=== PATIENT | female | born 1940 | race Caucasian/White ===

== ENCOUNTER 2021-01-15 11:41 | Inpatient (IN) | payer MEDICARE, SELFPAY ==
--- NOTE | 2021-01-15 11:43 | ECG_ITS ---
[facility] Test Date: 2021-01-15 Pat Name: Xena Thompson Department: Room: Gender: Female Bid Manager: : 1940 Requested By: Thomas Campbell Order Number: [id number] Linda MD: Sammy Blancas M.D. Measurements Intervals [place] Rate: 87 P: 62 ND: 154 QRS: 22 QRSD: 77 T: 25 QT: 361 QTc: 434 Interpretive Statements SINUS RHYTHM WITH OCCASIONAL SUPRAVENTRICULAR PREMATURE COMPLEXES INTERPRETATION BASED ON A DEFAULT AGE OF 40 YEARS No previous ECG available for comparison Electronically Signed On 01-15-2021 23:56:18 CDT by Sammy Blancas M.D. [email or web address] at stone [email or web address] [email or web address] health system [id number] f
[2021-01-15 11:44] VITALS: BP 115/61; PULSE 95; RESP 18; TEMP 36.8; O2SAT 96; BMI 15.4
--- NOTE | 2021-01-15 11:51 | CT_ITS ---
WS: [id number] CT CHEST, ABDOMEN AND PELVIS WITH CONTRAST. HISTORY: abd pain, dyspnea TECHNIQUE: Contiguous 5 mm axial imaging performed through the chest, abdomen and pelvis with IV cont rast, oral contrast has not been provided. Coronal and sagittal reformats chest. Coronal and sagittal reformats through the abdomen and pelvis. All CT scans at [facility] use at least one of the se dose optimization techniques: automated exposure control; mA and/or kV adjustment per patient size (includes targeted exams where dose is matched to clinical indication); or iterative reconstruction. CONTRAST: Omnipaque 300; 75 mL IV. DLP: 856.38 mGy.cm COMPARISON: 11/25/[address]: Lung volumes are decreased. Dependent changes at the lung bases. No effusion or pneumonia. Dilated pulmonary artery and aorta. Cardiac chambers are enlarged. No pericardial effusion. No adenop athy is identified within the thorax. Stomach is nearly completely intrathoracic. Abdomen CT: Small low-attenuation lesions throughout the liver. No bile duct dilatation. Gallbladder contains stones. No adjacent inflammation. Normal spleen. Pancreas is not well visualized due to alisha thing motion artifact. Neither adrenal gland is well visualized. Kidneys are atrophic bilaterally. Co mplex lobulated cyst upper pole LEFT kidney measures 3.5 x 4.6 cm and is increased in size since 2009. No hydronephrosis. Moderate atherosclerosis aorta. Poorly visualized GI tract. There is significant motion artifact. Cannot exclude acute abdominal or p elvic abnormalities. Pelvic CT: Severe fecal retention and constipation at the rectum. Diameter measuring 7.4 cm. Rogers ca theter is in place. LEFT total hip arthroplasty. Severe thoracolumbar scoliosis. Vertebral planar compression fracture at T12 with retropulsion towards the thecal sac. There are additional numerous, age indeterminate fract ures throughout the thoracic and lumbar spines. CT/CT chest abd pel w con* IMPRESSION: 1. Quality of this examination is significantly limited by breathing motion ar tifact and positioning of the patient. 2. Large hiatal hernia. 3. No pneumonia. 4. Cardiomegaly. 5. Complex cyst upper pole LEFT kidney has slightly increased in size since 10. 6. Severe constipation with fecal impaction at the rectum. Rectum measures 7.4 cm diameter. 7. Osteoporosis with numerous thoracic and lumbar spine compression fractures. Retropulsion of the T12 compression fracture with only mild encroachment into the thecal sac. 8. Cholelithiasis.
--- NOTE | 2021-01-15 11:51 | CT_ITS ---
WS: [id number] CT HEAD NONCONTRAST HISTORY: altered mental status, TECHNIQUE: Contiguous axial imaging performed through the brain in 2.5 mm imaging. Bone and soft tiss ue windows. Sagittal and coronal reformats reviewed. All CT scans at [facility] use at least one of these dose optimization techniques: automated exposure control; mA and/or kV adjustment per pa tient size (includes targeted exams where dose is matched to clinical indication); or iterative recon struction. DLP: 818.7 mGy.cm COMPARISON: None available. No acute intracranial hemorrhage, midline shift or mass effect. Moderate diffuse atrophy with low attenuation confluently throughout the white matter surrounding the ventricles. Ventricles: Marked dilatation of the lateral ventricle and third ventricle. Fourth ventricle is not significantly dilated. No obstructing mass identified. Paranasal sinuses: As visualized are clear. Mastoid air cells: Well pneumatized. Calvarium and scalp: Skull is intact with no soft tissue edema or swelling. CT/CT head wo con* [id number] IMPRESSION: 1. No acute intracranial hemorrhage or edema. 2. Marked dilatation of the lateral ventricles and third ventricle with a norm al size fourth ventricle. 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 No prior studies are available.
[2021-01-15 12:27] LABS: ABG PCO2 36.6 mmHg (35-45); ABG PH Result 7.44 (7.35-7.45); Alveolar-Arterial Oxygen Gradi 4.1 mmHg (5-10); Arterial Blood Gas Hematocrit 39.9 % (37-47); Base Excess ABG 0.6 mmol/L (-2.0-2.0); Blood Gas Allen Test Pos; Blood Gas Operator Identificat AMH; Blood Gas Sample Site Radial, right; Blood Gas Sample Type Arterial; Carboxyhemoglobin 1.3 %THgb (0.4-20.1); HCO3 ABG 24.6 mmol/L (22-26); HGB O2 Sat 93.1 % (95-100); Ionized Calcium Level - ABG 1.3 mmol/L (1.1-1.4); Methemoglobin 1.1 % (0.4-1.5); Oxygen Device ROOM AIR; Oxygen Saturation ABG 95.4; Potassium Level - ABG 3.5 mmol/L (3.5-5.0)
[2021-01-15 12:37] VITALS: BP 95/53; PULSE 86; PULSE 92; RESP 19; TEMP 37.1; O2SAT 95
[2021-01-15 12:43] LABS: Basophils % 0.3 %; Hematocrit 40.8 % (37.0-47.0); Hemoglobin 12.8 g/dL (11.5-15.3); Lymphocytes # 0.3 10^3/uL (0.8-4.8); Lymphocytes % 2.9 %; Mean Corpuscular HGB Conc 31.4 g/dL (30.0-36.0); Mean Corpuscular Hemoglobin 29.3 pg (28.0-34.0); Mean Corpuscular Volume 93.4 fl (81-99); Mean Platelet Volume 10.1 fL (7.4-10.4); Monocytes # 0.8 10^3/uL (0.2-0.9); Neutrophils # 9.45 10^3/uL (1.8-7.7); Neutrophils % 88.8 %; Nucleated Red Blood Cells % 0 %; Platelet Count 183 10^3/cmm (130-400); Red Blood Count 4.37 10^6/uL (4.1-5.3); Red Cell Distribution Width 13.1 % (12.1-15.1); White Blood Count 10.7 10^3/uL (4.0-10.0)
[2021-01-15] MEDS: sodium chloride 0.9% 500 ML 999 ML IV (12:49)
[2021-01-15 13:02] LABS: Alanine Aminotransferase 10 U/L (0-33); Albumin Level 4.3 g/dL (3.5-5.2); Alkaline Phosphatase 42 IU/L (35-105); Anion Gap 14.7 (5-19); Aspartate Amino Transferase 20 U/L (0-32); Blood Urea Nitrogen 31 mg/dL (8-23); Calcium 9.3 mg/dL (8.5-10.5); Carbon Dioxide 25 mmol/L (22-29); Chloride 111 mmol/L (98-107); Globulin 2.2 g/dL (1.3-4.6); Glucose 135 mg/dL (65-115); Lactic Sepsis W/Reflex 2.5 mmol/L (0.5-2.2); Lipase 38 U/L (13-60); Magnesium 2.3 mg/dL (1.7-2.3); Osmolality Calculated 313 mOsm/kg (285-295); Potassium 3.7 mmol/L (3.5-5.1); Sodium 147 mmol/L (136-145); Total Bilirubin 1.1 mg/dL (0.15-1.2); Total Protein 6.5 g/dL (6.6-8.7)
[2021-01-15 13:03] LABS: Troponin(5th) Baseline 41 ng/L (0-10)
--- NOTE | 2021-01-15 13:07 | W.ED.FALL ---
HPI - Fall General: Chief Complaint: Fall Stated Complaint: FOUND IN FLOOR, FALL, CONFUSED Time Seen by Provider: 01/15/21 11:43 History of Present Illness: HPI Narrative: 80-year-old female brought in by EMS. Per EMS report her living conditions were atrocious. Significant amount of stool bugs etc. and home. She did not appear to have the ability to get herself to the restroom or feed herself. She is cachectic poorly responsive. She was found down have been down for an unknown length of time.Patient is confused and disoriented we were able to get out of her there are some cousins in the area but she does not have anybody who looks in on her or help her. Length of time down is uncertain however it likely was extended MD complaint: fall Onset (ago): unknown Fall witnessed: no Place fall occurred: home Prolonged down time: yes Associated symptoms-after fall: Reports confusion, difficulty walking and weakness; Denies abdominal pain, chest pain, headache(s), hematuria, lightheadedness, neck pain, numbness, short of breath or vertigo Review of Systems Const: Denies: fever(s), chills, body aches, change in appetite, fatigue or malaise ENMT: Denies: throat pain, ear or mastoid pain, nasal discharge or nasal congestion Card: Denies: chest pain or lightheadedness Resp: Denies: dyspnea, productive cough or non-productive cough GI: Denies: abdominal pain : Denies: hematuria Musc: Denies: neck pain Skin/Breast: Denies: rash or pruritus Neuro: Reports: difficulty walking and confusion; Denies: headache(s) or vertigo PFS ED PFSH: Medical History (Updated 01/16/21 @ 14:48 by Thomas Sanchez DO) HTN (hypertension) Kyphoscoliosis Osteoarthritis Urinary incontinence Surgical History (Updated 01/15/21 @ 17:40 by Ramon Watkins MD) History of hip surgery Tells me she broke her hip does not remember when Hx of hernia repair Tells me about middle abdominal hernia repair, does not remember when Family History (Updated 01/15/21 @ 17:52 by Ramon Watkins MD) Other Cancer Social History Smoking and tobacco status: never smoked Alcohol intake: never Substance/Drug Use: never Caregiver/support person: No (Gets help from friend as per HPI) Lives independently: Yes Physical Exam Const: COMMON NORMALS: no acute distress GENERAL APPEARANCE: cooperative HENMT: COMMON NORMALS: normocephalic and atraumatic HEAD & SCALP: normocephalic and atraumatic Neck/C-Spine: COMMON NORMALS: no JVD Resp: COMMON NORMALS: normal respiratory effort, No retractions, No use of accessory muscles and clear to auscultation bilaterally AUSCULTATION: clear to auscultation bilaterally Cardio: COMMON NORMALS: no JVD, regular rate, regular rhythm and No murmurs present (Cardio) RATE: regular rate RHYTHM: regular rhythm GI: COMMON NORMALS: Soft to palpation and No hepatosplenomegaly present AUSCULTATION: Yes normoactive bowel sounds PALPATION: Yes Soft to palpation, No Tenderness to palpation present (GI), No Guarding due to palpation present (GI) and Yes No hepatosplenomegaly present Extremity: COMMON NORMALS: normal to inspection, capillary refill normal, no clubbing, cyanosis or edema, no calf tenderness and no pedal edema Skin: OTHER: Skin tear on the left posterior thigh multiple skin ulcerations no loss presacral ulcerations or decubiti. Chronic venous stasis changes and swelling of the lower extremities. Course Vital Signs: Vital signs: Vital Signs Temperature 99.4 F 01/16/21 11:48 Pulse Rate 84 01/16/21 11:48 Respiratory Rate 18 01/16/21 11:48 Blood Pressure 131/80 01/16/21 11:48 Pulse Oximetry 96 01/16/21 11:48 MDM - Fall MDM Narrative: Medical decision making narrative: Patient emaciated unable to care for self.She does have cystitis and mild rhabdomyolysis. There is also a question of intracranial hypertension however whether or not this is acute or chronic cannot be determined at this point. In either event the patient will need to be stabilized before any intervention to be done she will need further neurologic consultation discussed Dr. Watkins orders are written. Lab Data: Labs: Lab Results 01/15/21 01/15/21 01/15/21 12:15 12:21 12:25 WBC 10.7 10^3/uL H 10 ^3/uL (4.0-10.0) RBC 4.37 10^6/uL 10^6 /uL (4.1-5.3) Hgb 12.8 g/dL g/dL (11.5-15.3) Hct 40.8 % % (37.0-47.0) MCV 93.4 fl fl (81-99) MCH 29.3 pg pg (28.0-34.0) MCHC 31.4 g/dL g/dL (30.0-36.0) RDW 13.1 % % (12.1-15.1) Plt Count 183 10^3/cmm 10^3 /cmm (130-400) MPV 10.1 fL fL (7.4-10.4) Neut % (Auto) 88.8 % % Lymph % (Auto) 2.9 % % [place] % (Auto) 7.0 % % Eos % (Auto) 0.0 % % Baso % (Auto) 0.3 % % Neut # (Auto) 9.45 10^3/uL H 10 ^3/uL (1.8-7.7) Lymph # (Auto) 0.3 10^3/uL L 10^ 3/uL (0.8-4.8) [place] # (Auto) 0.8 10^3/uL 10^3/ uL (0.2-0.9) Eos # (Auto) 0.0 10^3/uL 10^3/ uL (0.0-0.8) Baso # (Auto) 0.0 10^3/uL 10^3/ uL (0.0-0.1) Nucleated RBC % (a uto) 0 % % Nucleated RBCs # 0.0 /100WBC /100W BC Specimen Type Arterial Sample Site Radial, right ABG pH 7.44 (7.35-7.45) ABG pCO2 36.6 mmHg mmHg (35-45) ABG pO2 69.0 mmHg L mmHg (80.0-100.0) ABG HCO3 24.6 mmol/L mmol/ L (22-26) ABG O2 Saturation 95.4 ABG Base Excess 0.6 mmol/L mmol/L (-2.0-2.0) Efraín Test Pos A-a O2 Gradient 4.1 mmHg L mmHg (5-10) Hematocrit 39.9 % % (37-47) Hgb O2 Saturation 93.1 % L % (95-100) Carboxyhemoglobin 1.3 %THgb %THgb (0.4-20.1) Methemoglobin 1.1 % % (0.4-1.5) Total Hemoglobin 13.0 g/dL g/dL (12-16) Sodium 151.0 mmol/L H mm ol/L (131-143) Potassium 3.5 mmol/L mmol/L (3.5-5.0) Glucose 139.0 mg/dL H mg/ dL (70-115) Ionized Calcium 1.3 mmol/L mmol/L (1.1-1.4) O2 Delivery Device Room air FiO2 21.0 % % Spray Gun Sizer ID Amh Chloride Carbon Dioxide Anion Gap BUN Creatinine GFR Calculation Calculated Osmolal ity Lactic Acid Lactic Acid (Sepsi s) Calcium Magnesium Total Bilirubin AST ALT Alkaline Phosphata se Creatine Kinase Troponin T Baselin e Troponin T 120 Min [place] Troponin T Total Protein Albumin Globulin Lipase Urine Color Yellow (Yellow) Urine Appearance Cloudy (CLEAR) Urine pH 5 (5-7) Ur Specific Gravit y 1.020 (1.005-1.030) Urine Protein 1+ H (Negative) Urine Glucose (UA) Norm (Normal) Urine Ketones Negative (Negative) Urine Blood 3+ H (Negative) Urine Nitrate Negative (Negative) Urine Bilirubin 1+ H (Negative) Urine Urobilinogen 1 mg/dL H mg/dL (Negative) Ur Leukocyte [place] 2+ H (Negative) Urine RBC >100 /hpf H /hpf (0-2) Urine WBC Too numerous to c nt /hpf H /hpf (0-5) Ur Squamous Epith Cells 5-10 /hpf H /hpf (0-5) Amorphous Sediment Not Reportable Urine Bacteria 4+ /hpf H /hpf (NONE) Serum Ketones 01/15/21 01/15/21 01/15/21 12:25 12:25 12:25 WBC RBC Hgb Hct MCV MCH MCHC RDW Plt Count MPV Neut % (Auto) Lymph % (Auto) [place] % (Auto) Eos % (Auto) Baso % (Auto) Neut # (Auto) Lymph # (Auto) [place] # (Auto) Eos # (Auto) Baso # (Auto) Nucleated RBC % (a uto) Nucleated RBCs # Specimen Type Sample Site ABG pH ABG pCO2 ABG pO2 ABG HCO3 ABG O2 Saturation ABG Base Excess Efraín Test A-a O2 Gradient Hematocrit Hgb O2 Saturation Carboxyhemoglobin Methemoglobin Total Hemoglobin Sodium 147 mmol/L H mmol /L (136-145) Potassium 3.7 mmol/L mmol/L (3.5-5.1) Glucose 135 mg/dL H mg/dL (65-115) Ionized Calcium O2 Delivery Device FiO2 Spray Gun Sizer ID Chloride 111 mmol/L H mmol /L (98-107) Carbon Dioxide 25 mmol/L mmol/L (22-29) Anion Gap 14.7 (5-19) BUN 31 mg/dL H mg/dL (8-23) Creatinine 0.9 mg/dL mg/dL (0.5-0.9) GFR Calculation Not Reportable Calculated Osmolal ity 313 mOsm/kg H mOs m/kg (285-295) Lactic Acid 2.5 mmol/L H mmol /L (0.5-2.2) Lactic Acid (Sepsi s) Calcium 9.3 mg/dL mg/dL (8.5-10.5) Magnesium 2.3 mg/dL mg/dL (1.7-2.3) Total Bilirubin 1.1 mg/dL mg/dL (0.15-1.2) AST 20 U/L U/L (0-32) ALT 10 U/L U/L (0-33) Alkaline Phosphata se 42 IU/L IU/L (35-105) Creatine Kinase 548 U/L H* U/L (26-192) Troponin T Baselin e 41 ng/L H ng/L (0-10) Troponin T 120 Min [place] Troponin T Total Protein 6.5 g/dL L g/dL (6.6-8.7) Albumin 4.3 g/dL g/dL (3.5-5.2) Globulin 2.2 g/dL g/dL (1.3-4.6) Lipase 38 U/L U/L (13-60) Urine Color Urine Appearance Urine pH Ur Specific Gravit y Urine Protein Urine Glucose (UA) Urine Ketones Urine Blood Urine Nitrate Urine Bilirubin Urine Urobilinogen Ur Leukocyte [place] Urine RBC Urine WBC Ur Squamous Epith Cells Amorphous Sediment Urine Bacteria Serum Ketones 01/15/21 01/15/21 01/15/21 12:25 14:35 14:35 WBC RBC Hgb Hct MCV MCH MCHC RDW Plt Count MPV Neut % (Auto) Lymph % (Auto) [place] % (Auto) Eos % (Auto) Baso % (Auto) Neut # (Auto) Lymph # (Auto) [place] # (Auto) Eos # (Auto) Baso # (Auto) Nucleated RBC % (a uto) Nucleated RBCs # Specimen Type Sample Site ABG pH ABG pCO2 ABG pO2 ABG HCO3 ABG O2 Saturation ABG Base Excess Efraín Test A-a O2 Gradient Hematocrit Hgb O2 Saturation Carboxyhemoglobin Methemoglobin Total Hemoglobin Sodium Potassium Glucose Ionized Calcium O2 Delivery Device FiO2 Spray Gun Sizer ID Chloride Carbon Dioxide Anion Gap BUN Creatinine GFR Calculation Calculated Osmolal ity Lactic Acid Lactic Acid (Sepsi s) 1.6 mmol/L mmol/L (0.5-2.2) Calcium Magnesium Total Bilirubin AST ALT Alkaline Phosphata se Creatine Kinase Troponin T Baselin e Troponin T 120 Min [place] 31.62 ng/L H ng/L (0-10) [place] Troponin T -9.38 ABS# L ABS# (0-10) Total Protein Albumin Globulin Lipase Urine Color Urine Appearance Urine pH Ur Specific Gravit y Urine Protein Urine Glucose (UA) Urine Ketones Urine Blood Urine Nitrate Urine Bilirubin Urine Urobilinogen Ur Leukocyte [place] Urine RBC Urine WBC Ur Squamous Epith Cells Amorphous Sediment Urine Bacteria Serum Ketones Negative (Negative) Discharge Plan Discharge Patient Disposition: Admitted As Inpatient Admit Provider: Ramon Watkins Clinical Impression: UTI (urinary tract infection), Dehydration, Dementia, Declining functional status, Rhabdomyolysis, Obstructive hydrocephalus, Unable to walk Condition: Stable Coding Level of Care Code ED Munitions Handler for Chg Fwd Exam Detailed
[2021-01-15 13:09] LABS: Ketone (Acetest) Serum Negative (Negative)
[2021-01-15 13:14] LABS: Creatine Phosphokinase 548 U/L (26-192)
--- NOTE | 2021-01-15 13:29 | XR_ITS ---
WS: [id number] Exam: XR chest 1V portable [id number] Date/Time of Exam: 01/15/2021 1:32 PM Reason For Exam: dyspnea/cough Comparison 06/14/2013. The lungs are fully expanded and clear. Chronic eventration right diaphragm. Angular scoliosis of the lumbar spine. Several old rib fractures on the right. Cardiomediastinal structures are unremarkable in appearance. No pleural effusions. XR/XR chest 1V portable [id number] IMPRESSION: 1. No acute cardiopulmonary finding.
--- NOTE | 2021-01-15 13:51 | PC.NURSE ---
Pt arrived via EMS from home, where she lives alone. Pt states she has a neighbor friend that checks in on her once in a while but does not have any family in the area. Pt states she never had children. EMS states pts neighbor stopped in to check on her and found her lying on the floor of her home and called 911. EMS states pt was surrounded by garbage, various bugs, spirders and cockroaches were noted to be crawling around and on pt. Pt was lying in a stool filled brief with a plastic bag stuck inside the brief. EMS reports when they removed her pants on scene cockroaches were noted to come out of pts pants and groin area. Pt appears to be quite thin, bordering on emaciated and is extremely dirty. Pt is wearing a dirty long sleeved shirt, pantyhose over her legs covering a large diaper on pts left knee and a large diaper wrap covering pts right lower extremity. Pt reports she has been on the floor for an unknown amount of time but thinks maybe 2-3 days . This RN asked pt when the last time she has bathed, pt responded I dont know when . This RN asked pt when the last time she has eaten or had anything to drink, pt reports I cant remember . EMS states there were cats (unknown amount of cats) in the home and the home was filthy, appearing to be uninhabitable. Pt A/O x4, vs taken, pts solied clothing removed from pt, pt was cleaned and skin washed with soap and water, pt dired and a clean gown placed on pt with barrier cream administered to pts conchis and buttocks area. Pt given warm blankets, and is requesting something to drink. Per Dr. Sanchez, pt ok to drink. Pt assisted with drinking a small glass of water. EMS advosed this RN they will be calling and filing a report with [facility]. This RN will hotline pt
[2021-01-15] MEDS: iohexol 300 mg/mL 100 mL Btl IV (13:57)
[2021-01-15 14:27] LABS: Reflex Lactate Order REFLEX LACTIC ORDERD
[2021-01-15 14:38] LABS: Urine Appearance Cloudy (CLEAR); Urine Color Yellow (Yellow); pH Urine 5 (5-7)
[2021-01-15 14:39] LABS: Add Urine Microscopic? YES; Bilirubin Urine 1+ (Negative); Blood Urine 3+ (Negative); Glucose Urine UA Norm (Normal); Ketones Urine Negative (Negative); Leukocyte Esterase Urine 2+ (Negative); Nitrate Urine Negative (Negative); Protein Urine 1+ (Negative); Urobilinogen Urine 1 mg/dL (Negative)
[2021-01-15 14:45] LABS: Add Urine Culture? Yes; Bacteria Urine 4+ /hpf; RBC Urine >100 /hpf (0-2); WBC Urine TOO NUMEROUS TO CNT /hpf (0-5)
[2021-01-15] MEDS: cefTRIAXone 1,000 MG in sodium chloride 0.9% (plus) 50 ML 100 MG IV (15:01)
[2021-01-15 15:28] LABS: Lactic Acid level (Lactate) 1.6 mmol/L (0.5-2.2)
[2021-01-15 15:45] LABS: Troponin 5 2HR 31.62 ng/L (0-10)
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
--- NOTE | 2021-01-15 17:43 | ECG_ITS ---
[facility] Test Date: 2021-01-15 Pat Name: Xena Thompson Department: Room: Gender: Female Section Leader And Machine Setter: : 1940 Requested By: Thomas Campbell Order Number: [id number] Linda MD: Sammy Blancas M.D. Measurements Intervals Elfrida Rate: 78 P: 40 IA: 147 QRS: -1 QRSD: 74 T: 31 QT: 371 QTc: 424 Interpretive Statements SINUS RHYTHM INTERPRETATION BASED ON A DEFAULT AGE OF 40 YEARS Compared to ECG 01/15/2021 13:09:38 No significant changes Heavy baseline artifact, need to repeat the Electronically Signed On 01-16-2021 0:01:12 CDT by Sammy Blancas M.D. [email or web address] ([email or web address]) montgomery va medical centerInotremkettering health behavioral medical center.BzzAgent/store/NU/[id number] f
[2021-01-15 18:17] VITALS: BP 123/66; PULSE 75; RESP 15; O2SAT 95
--- NOTE | 2021-01-15 19:04 | NUR.SHIFT ---
P\This Rn called[place] Hotline regarding pts living conditions. Report given evelio Friedman
[2021-01-15 19:25] LABS: Troponin 5 6HR 35.19 ng/L (0-10)
[2021-01-15 19:26] LABS: Troponin 5 6HR Delta -5.81 ng/L (0-12)
[2021-01-15 20:17] VITALS: BP 123/74; PULSE 72; RESP 17; TEMP 36.6; O2SAT 93
[2021-01-15] MEDS: heparin 5,000 unit/mL INJ 1 mL 5000 UNIT SUBCUT (22:14)
[2021-01-16] VITALS: BP 138/74; PULSE 82; RESP 21; TEMP 36.6; O2SAT 96
[2021-01-16 04:00] VITALS: BP 111/65; PULSE 79; RESP 18; TEMP 36.9; O2SAT 96
--- NOTE | 2021-01-16 06:00 | USCV_ITS ---
Thompson, Jowilver Age: 80 Gender: F : 1940 Exam Date: 01/16/2021 06:25 Ordering Phys: Ramon Watkins MD Technologist: Beckie Ramirez [place] [facility] [place]: [place]WELLING HISTORY: Lower extremity swelling. PROCEDURES: Venous duplex imaging was performed in bilateral lower extremities. The following venous structures were evaluated: common femoral vein, profunda vein, proximal portion of the greater saphenous vein, superficial femoral vein, and the popliteal vein. In addition, the posterior tibial and peroneal trunk were evaluated. FINDINGS: Normal 2-D Doppler and augmentation and compressibility throughout the lower extremity venous structures. Additional imaging through the proximal calf veins also reveals no thrombus. Limited evaluation of the greater saphenous vein is patent with no thrombus. CONCLUSIONS No DVT bilateral lower extremities. Dr. Siria Ritter DO (Electronically Signed) Final Date: 16 January 2021 08:39 S
[2021-01-16 06:17] LABS: Basophils % 0.2 %; Hematocrit 38.4 % (37.0-47.0); Hemoglobin 11.8 g/dL (11.5-15.3); Lymphocytes # 0.8 10^3/uL (0.8-4.8); Lymphocytes % 6.5 %; Mean Corpuscular HGB Conc 30.7 g/dL (30.0-36.0); Mean Corpuscular Hemoglobin 29.6 pg (28.0-34.0); Mean Corpuscular Volume 96.2 fl (81-99); Mean Platelet Volume 10.2 fL (7.4-10.4); Monocytes # 1.4 10^3/uL (0.2-0.9); Monocytes % 11.7 %; Neutrophils # 9.78 10^3/uL (1.8-7.7); Neutrophils % 81.1 %; Nucleated Red Blood Cells % 0 %; Platelet Count 149 10^3/cmm (130-400); Red Blood Count 3.99 10^6/uL (4.1-5.3); Red Cell Distribution Width 13.1 % (12.1-15.1); White Blood Count 12.1 10^3/uL (4.0-10.0)
[2021-01-16 06:41] LABS: Alanine Aminotransferase 15 U/L (0-33); Albumin Level 3.5 g/dL (3.5-5.2); Alkaline Phosphatase 34 IU/L (35-105); Anion Gap 14.9 (5-19); Aspartate Amino Transferase 31 U/L (0-32); Blood Urea Nitrogen 28 mg/dL (8-23); Calcium 8.9 mg/dL (8.5-10.5); Carbon Dioxide 22 mmol/L (22-29); Chloride 110 mmol/L (98-107); Globulin 1.7 g/dL (1.3-4.6); Glucose 115 mg/dL (65-115); Osmolality Calculated 302 mOsm/kg (285-295); Potassium 3.9 mmol/L (3.5-5.1); Sodium 143 mmol/L (136-145); Thyroid Stimulating Hormone 3.14 uIU/mL (0.27-4.20); Total Bilirubin 0.6 mg/dL (0.15-1.2); Total Protein 5.2 g/dL (6.6-8.7)
--- NOTE | 2021-01-16 07:24 | PC.NURSE ---
Frequent safety and comfort rounds continue. Orders and/or nursing care completed as indicated. Patient monitored for response to intervention and treatment(s). Education provided includes medications]. Patient and/or sales representative womens health verbalizes understanding. Will continue to monitor.
[2021-01-16 07:51] VITALS: BP 123/75; PULSE 72; RESP 18; TEMP 36.3; O2SAT 97
[2021-01-16] MEDS: heparin 5,000 unit/mL INJ 1 mL 5000 UNIT SUBCUT ×2 (08:13→20:33)
[2021-01-16 09:15] LABS: Creatine Phosphokinase 739 U/L (26-192)
--- NOTE | 2021-01-16 10:17 | PC.CHAP ---
Pastoral Care Encounter/Spiritual Assessment Type of Contact [] Declined silver brazer visit [] Patient/Family/Request visit [] Outpatient visit [] Follow-up visit [] Physician referral [] Code/Alert [x] Routine visit [] Staff referral [] Actively dying [] Patient sleeping [] Family support [] [] Out of room [] Palliative care [] [] Receiving care in room [] Pre-surgical visit [] Trauma [] Long length of stay [] ICU visit [] Other: Relational/Emotional Strength [x] Patient feels connected with others/family/visitors/staff [] Distress [] Loneliness/isolation [] Abandonment Spirituality of Patient x[] Person of Vane [x] Attends Hoahaoism of their Vane [x] Believes in Prayer [x] Reads Bible or Pentecostalism materials [] There are Spiritual issues to be addressed Engineer Specialist Interventions [x] Prayer [x] Active listening [x] Non-anxious presence [] Spiritual/emotional support [] Crisis/trauma care [] Spiritual counseling [] Bereavement support [] Provided bereavement packet [] Provided Bible/devotional materials [] Provided toy/stuffed animal, coloring book to patient or family member [] Provided Communion [] Anointing/[place] [] Salvation [x] Completed spiritual assessment [] Other: Impact on Illness or Injury [] Angry [] Fearful [] Anxious [] Often cries [] Exhaustion [] Unable to work [] Unable to attend restorationism [] Unable to walk/stand [] Unable to read [] Unable to drive [] Unable to eat/drink [] Unable to sleep [] Unable to be with family [] Patient intubated [] Other: Summary Time spent with patient 10 min
[2021-01-16 11:48] VITALS: BP 131/80; PULSE 84; RESP 18; TEMP 37.4; O2SAT 96
[2021-01-16] MEDS: cefTRIAXone 1,000 MG in sodium chloride 0.9% (plus) 50 ML 100 MG IV (14:34)
--- NOTE | 2021-01-16 14:59 | PM.CONSULT ---
Documented by User: CASS Quezada 01/16/21 15:10 Providers/Reason For Consult Consulting Physician/Specialty*: Orthopedics Reason for Consult*: Back Pain Attending Physician: Ramon Watkins History of Present Illness History of Present Illness Xena Thompson is a 80 year old female presented to [facility] on 01/15/2021. She was found to have a fracture in her back. Patient denies recent injury although she was found on the floor. upon evaluation in room 254 she wasnt reporting much back pain. she reports aching in her back. Rest helps reduce the back ache. denies loss of Bowel or bladder. Review of Systems Const: Denies: fever(s), chills, body aches, change in appetite, fatigue or malaise Eyes: Denies: change in vision or eye redness ENMT: Denies: throat pain, oral sores, ear or mastoid pain, nasal discharge or nasal congestion Card: Denies: chest pain, edema, lightheadedness, pre-syncope or dyspnea on exertion Resp: Denies: dyspnea, productive cough, non-productive cough, change in phlegm color or hemoptysis GI: Denies: abdominal pain, nausea, vomiting, diarrhea, constipation, hematochezia or melena : Reports: urinary urgency, nocturia and urinary incontinence; Denies: flank pain, urinary frequency or hematuria Musc: Reports: muscle weakness; Denies: neck pain, back pain, joint swelling or joint redness Skin/Breast: Denies: rash, pruritus, sores or new lesions Neuro: Reports: weakness in extremities, difficulty walking, confusion and other (Memory problems); Denies: headache(s), numbness in extremities, dizziness, vertigo or seizure-like activity Endo: Denies: polyuria or polydipsia Zia/Lymph: Denies: easy bleeding or purpura All/Imm: Denies: urticaria, throat swelling or tongue swelling Meds/Allergies Home Medications and Allergies Home Medications Medication Instructions Recorded Confirmed Last Taken Type No Known Home Medications 01/15/21 01/15/21 Unknown History Allergies Allergy/AdvReac Type Severity Reaction Status Date / Time No Known Allergies Allergy Unverified 01/15/21 14:12 Current Medications Current Medications Generic Name Dose Route Start Last Admin Trade Name Freq PRN Reason Stop Dose Admin Heparin Sodium (Porcine) 5,000 unit 10/28/21 20:17 01/16/21 08:13 Heparin 5,000 Unit/Ml Inj 1 Ml SUBCUT 5,000 unit Q12H NURIS Administration PFSH Acute PFSH: Medical History (Updated 01/16/21 @ 15:08 by CASS Quezada) Fracture, thoracic vertebra, compression HTN (hypertension) Kyphoscoliosis Osteoarthritis Urinary incontinence Surgical History (Updated 01/15/21 @ 17:40 by Ramon Watkins MD) History of hip surgery Tells me she broke her hip does not remember when Hx of hernia repair Tells me about middle abdominal hernia repair, does not remember when Family History (Updated 01/15/21 @ 17:52 by Ramon Watkins MD) Other Cancer Social History Smoking and tobacco status: never smoked Alcohol intake: never Substance/Drug Use: never Caregiver/support person: No (Gets help from friend as per HPI) Lives independently: Yes Vitals/I&O/Wt Last Vital Signs Temp 99.4 F 01/16/21 11:48 Pulse 84 01/16/21 11:48 Resp 18 01/16/21 11:48 BP 131/80 01/16/21 11:48 Pulse Ox 96 01/16/21 11:48 01/15/21 01/16/21 01/16/21 22:59 06:59 14:59 Intake Total 240 / 240 Output Total 650 / 650 Balance -410 / -410 Weight last 48 hrs Weight 96 lb Weight 90 lb Physical Exam Const: COMMON NORMALS: no acute distress HENMT: COMMON NORMALS: normocephalic HEAD & SCALP: normocephalic Resp: COMMON NORMALS: normal respiratory effort Cardio: COMMON NORMALS: regular rate and regular rhythm RATE: regular rate RHYTHM: regular rhythm GI: COMMON NORMALS: non-tender : COMMON NORMALS: Yes no CVA tenderness BLADDER/KIDNEY EXAM: Yes no CVA tenderness Back/Pelvis: COMMON NORMALS: no CVA tenderness THORACIC SPINE/UPPER BACK: Yes normal to inspection, Yes pain with ROM and Yes thoracic spinal tenderness LUMBAR SPINE/LOWER BACK: Yes ROM limited, Yes pain with ROM and Yes lumbar spinal tenderness Psych: COMMON NORMALS: cooperative Urinary Catheter Management^: Rogers: Cath Placed During This Visit: yes Reason for Continuing Indwelling Catheter: Assist Healing of Perineal & Sacral Wounds- Incontinent Patients Urinary Catheter Date of Insertion: 01/15/21 Urinary Catheter Time of Insertion: 11:20 Data Micro: Micro: Microbiology 01/15/21 12:21 Urine Culture - Pr eliminary Urine Catheterize d Gram Negative R ods A&P Assessment and plan (1) Fracture, thoracic vertebra, compression: Will order an MRI of the Thoracic Spine with STIR images. Await results to determine if she will require bracing treatment. Status: Acute Coding Level of Care Code Acute Care Worker for [facility] Fwd Exam Comprehensive Diagnoses Fracture, thoracic vertebra, compression S22.000A Documented by User: Jozef Wilson DO 01/16/21 15:14 Meds/Allergies Home Medications and Allergies Home Medications Medication Instructions Recorded Confirmed Last Taken Type No Known Home Medications 01/15/21 01/15/21 Unknown History Allergies Allergy/AdvReac Type Severity Reaction Status Date / Time No Known Allergies Allergy Unverified 01/15/21 14:12 PFSH Acute PFSH: Medical History (Updated 01/16/21 @ 15:08 by CASS Quezada) Fracture, thoracic vertebra, compression HTN (hypertension) Kyphoscoliosis Osteoarthritis Urinary incontinence Surgical History (Updated 01/15/21 @ 17:40 by Ramon Watkins MD) History of hip surgery Tells me she broke her hip does not remember when Hx of hernia repair Tells me about middle abdominal hernia repair, does not remember when Family History (Updated 01/15/21 @ 17:52 by Ramon Watkins MD) Other Cancer Social History Smoking and tobacco status: never smoked Alcohol intake: never Substance/Drug Use: never Caregiver/support person: No (Gets help from friend as per HPI) Lives independently: Yes Physical Exam Urinary Catheter Management^: Rogers: Cath Placed During This Visit: no A&P Assessment and plan (1) Fracture, thoracic vertebra, compression: patient seen agree with above will await MRI read OK to get out of bed Status: Acute Consult Attestations Medical Necessity Statement: per primary service Coding Level of Care Code Acute Care Worker for [facility] Fwd Exam Comprehensive Diagnoses Fracture, thoracic vertebra, compression S22.000A
--- NOTE | 2021-01-16 15:01 | PM.CONSULT ---
Providers/Reason For Consult Attending Physician: Ramon Watkins History of Present Illness History of Present Illness Xena Thompson is a 80 year old female Review of Systems Const: Denies: fever(s), chills, body aches, change in appetite, fatigue or malaise Eyes: Denies: change in vision or eye redness ENMT: Denies: throat pain, oral sores, ear or mastoid pain, nasal discharge or nasal congestion Card: Denies: chest pain, edema, lightheadedness, pre-syncope or dyspnea on exertion Resp: Denies: dyspnea, productive cough, non-productive cough, change in phlegm color or hemoptysis GI: Denies: abdominal pain, nausea, vomiting, diarrhea, constipation, hematochezia or melena : Reports: urinary urgency, nocturia and urinary incontinence; Denies: flank pain, urinary frequency or hematuria Musc: Reports: muscle weakness; Denies: neck pain, back pain, joint swelling or joint redness Skin/Breast: Denies: rash, pruritus, sores or new lesions Neuro: Reports: weakness in extremities, difficulty walking, confusion and other (Memory problems); Denies: headache(s), numbness in extremities, dizziness, vertigo or seizure-like activity Endo: Denies: polyuria or polydipsia Zia/Lymph: Denies: easy bleeding or purpura All/Imm: Denies: urticaria, throat swelling or tongue swelling Meds/Allergies Home Medications and Allergies Home Medications Medication Instructions Recorded Confirmed Last Taken Type No Known Home Medications 01/15/21 01/15/21 Unknown History Allergies Allergy/AdvReac Type Severity Reaction Status Date / Time No Known Allergies Allergy Unverified 01/15/21 14:12 Current Medications Current Medications Generic Name Dose Route Start Last Admin Trade Name Freq PRN Reason Stop Dose Admin Heparin Sodium (Porcine) 5,000 unit 01/15/21 20:17 01/16/21 08:13 Heparin 5,000 Unit/Ml Inj 1 Ml SUBCUT 5,000 unit Q12H NURIS Administration PFSH Acute PFSH: Medical History (Updated 01/16/21 @ 14:48 by Thomas Sanchez DO) HTN (hypertension) Kyphoscoliosis Osteoarthritis Urinary incontinence Surgical History (Updated 01/15/21 @ 17:40 by Ramon Watkins MD) History of hip surgery Tells me she broke her hip does not remember when Hx of hernia repair Tells me about middle abdominal hernia repair, does not remember when Family History (Updated 01/15/21 @ 17:52 by Ramon Watkins MD) Other Cancer Social History Smoking and tobacco status: never smoked Alcohol intake: never Substance/Drug Use: never Caregiver/support person: No (Gets help from friend as per HPI) Lives independently: Yes Vitals/I&O/Wt Last Vital Signs Temp 99.4 F 01/16/21 11:48 Pulse 84 01/16/21 11:48 Resp 18 01/16/21 11:48 BP 131/80 01/16/21 11:48 Pulse Ox 96 01/16/21 11:48 01/16/21 01/16/21 01/16/21 06:59 14:59 22:59 Intake Total 240 / 240 Output Total 650 / 650 Balance -410 / -410 Weight last 48 hrs Weight 96 lb Weight 90 lb Physical Exam Urinary Catheter Management^: Rogers: Cath Placed During This Visit: yes Reason for Continuing Indwelling Catheter: Assist Healing of Perineal & Sacral Wounds- Incontinent Patients Urinary Catheter Date of Insertion: 01/15/21 Urinary Catheter Time of Insertion: 11:20 Data Micro: Micro: Microbiology 01/15/21 12:21 Urine Culture - Pr eliminary Urine Catheterize d Gram Negative R ods Coding Level of Care Code Acute Meal Miller for Dwayneg Katherine
[2021-01-16 15:40] VITALS: BP 125/78; PULSE 86; RESP 18; TEMP 36.8; O2SAT 95
[2021-01-16 20:00] VITALS: BP 120/76; PULSE 84; RESP 17; TEMP 36.7; O2SAT 93
--- NOTE | 2021-01-16 20:17 | MR_ITS ---
WS: [id number] MRI LUMBAR SPINE NONCONTRAST HISTORY: unable to walk, compression Fx T12, urinary incontinence COMPARISON: 11/26/2009 TECHNIQUE: Sagittal and axial multisequence imaging is submitted. Significant progression of degenerative rotoscoliosis and osteoporotic compression fracture since 11/26. Severe RIGHT rotoscoliosis of the lumbar spine. Disc spaces are all desiccated. Retrolisthesis of L4 by 7 mm. T10, T11 and T12 compression fractures. Severe vertebral planar fracture of T12. No marrow edema is e vident. Moderate LEFT foraminal stenosis at T11-12 due to the scoliosis and degenerative changes in t he thoracic spine. Severe compression fractures at L2, L3 and L4 are not acute. No marrow edema. Extensive bilateral fac et joint arthritis encroaching into the thecal sac at all levels. Conus terminates normally at L1-2 disc level. L1-L2: Diffuse asymmetric disc bulging to the LEFT. Severe LEFT foraminal stenosis and mild on the RI GHT. LEFT facet arthritis encroaches into the thecal sac. L2-L3: Severe facet joint arthritis with annular disc bulging contributing to moderate central and bi lateral foraminal stenosis. L3-L4: Severe central and bilateral foraminal stenosis. Thecal sac is being deformed by retropulsion of L4. L4-L5: Thecal sac is deformed and elongated. Moderate ligamentum flavum and facet arthritis. Severe b ilateral foraminal stenosis. L5-S1: Moderate bilateral foraminal stenosis. Lobulated cyst associated with the LEFT kidney. MR/MR lumbar spine wo con* [id number] IMPRESSION: 1. Quality of this MRI examination is significantly limited by patient's physi sami condition. 2. Numerous compression fractures in the lower thoracic and lumbar spine as de scribed above. None of these fractures appear acute. 3. Retropulsion of the L4 vertebral body causing a severe central and foramina l stenosis at L3-4. 4. Severe LEFT foraminal stenosis at L1-2. 5. Moderate central and bilateral foraminal stenosis at L2-3. 6. Severe bilateral foraminal stenosis at L4-5 and moderate at L5-S1.
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
[2021-01-17] VITALS: BP 124/76; PULSE 78; RESP 17; TEMP 36.7; O2SAT 95
[2021-01-17 04:00] VITALS: BP 125/83; PULSE 73; RESP 16; TEMP 36.5; O2SAT 94
[2021-01-17 05:21] LABS: Basophils % 0.3 %; Eosinophils # 0.1 10^3/uL (0.0-0.8); Eosinophils % 0.8 %; Hematocrit 38.2 % (37.0-47.0); Hemoglobin 12.1 g/dL (11.5-15.3); Lymphocytes % 13.8 %; Mean Corpuscular HGB Conc 31.7 g/dL (30.0-36.0); Mean Corpuscular Hemoglobin 28.9 pg (28.0-34.0); Mean Corpuscular Volume 91.4 fl (81-99); Mean Platelet Volume 11.2 fL (7.4-10.4); Monocytes # 0.7 10^3/uL (0.2-0.9); Monocytes % 8.9 %; Neutrophils % 75.8 %; Nucleated Red Blood Cells % 0 %; Platelet Count 152 10^3/cmm (130-400); Red Blood Count 4.18 10^6/uL (4.1-5.3); Red Cell Distribution Width 12.8 % (12.1-15.1); White Blood Count 7.4 10^3/uL (4.0-10.0)
[2021-01-17 05:37] LABS: Alanine Aminotransferase 17 U/L (0-33); Albumin Level 3.2 g/dL (3.5-5.2); Alkaline Phosphatase 35 IU/L (35-105); Anion Gap 9.9 (5-19); Aspartate Amino Transferase 26 U/L (0-32); Blood Urea Nitrogen 27 mg/dL (8-23); Calcium 8.6 mg/dL (8.5-10.5); Carbon Dioxide 26 mmol/L (22-29); Chloride 108 mmol/L (98-107); Creatine Phosphokinase 276 U/L (26-192); Globulin 1.8 g/dL (1.3-4.6); Glucose 84 mg/dL (65-115); Osmolality Calculated 294 mOsm/kg (285-295); Potassium 3.9 mmol/L (3.5-5.1); Sodium 140 mmol/L (136-145); Total Bilirubin 0.6 mg/dL (0.15-1.2)
--- NOTE | 2021-01-17 07:14 | P.PN_ITS ---
Documented by User: CASS Quezada 01/17/21 07:18 Subjective Subjective: Interval history: Patient appears comfortable and in no apparent distress this morning reporting no back pain her only complaint today is her right leg pain. Vitals/I&O/Wt Last Vital Signs Temp 97.7 F 01/17/21 04:00 Pulse 73 01/17/21 04:00 Resp 16 01/17/21 04:00 BP 125/83 01/17/21 04:00 Pulse Ox 94 01/17/21 04:00 01/16/21 01/17/21 01/17/21 22:59 06:59 14:59 Intake Total 390 / 630 80 / 710 Output Total 400 / 1050 Balance 390 / -20 -320 / -340 Weight last 48 hrs Weight 86 lb 3 oz Weight 96 lb Weight 90 lb Physical Exam Narrative: EXAM NARRATIVE: Nontender with palpation through her thoracic and lumbar spine. Her legs are warm she has diffuse tenderness throughout the right hip and lower extremity. Skin is warm with good capillary refill. She wiggles her toes dorsiflex and plantar flexes her ankles. Urinary Catheter Management^: Rogers: Cath Placed During This Visit: yes Reason for Continuing Indwelling Catheter: Accurate Measurement of Urinary Output in Critically Ill Patients Urinary Catheter Date of Insertion: 01/15/21 Urinary Catheter Time of Insertion: 11:20 Data : 01/17/21 04:13 01/17/21 04:13 Micro: Microbiology 01/15/21 12:21 Urine Culture - Preliminary Urine Catheterized Gram Negative Rods A&P Assessment and plan (1) Fracture, thoracic vertebra, compression: Based on the MRI scan appears that all the fractures in her thoracic and lumbar spine are old and healed. Patient reports no back pain. She is very cachectic and deconditioned. Would recommend physical therapy as tolerated. She is going to be limited with her range of motion based on her condition and deconditioning as well as the degenerative nature of her thoracolumbar spine. Would not recommend a TLSO brace at this time based on her fractures being healed. Status: Acute (2) Lumbar compression fracture: Status: Acute Attestations Medical Necessity Statement*: Defer to medical team Coding Level of Care Code Acute Retail Service Technician for [employer] Diagnoses Fracture, thoracic vertebra, compression S22.000A Lumbar compression fracture S32.000A Documented by User: Jozef Wilson DO 01/17/21 10:16 Physical Exam Urinary Catheter Management^: Rogers: Cath Placed During This Visit: no Data : 01/17/21 04:13 01/17/21 04:13 A&P Assessment and plan (1) Fracture, thoracic vertebra, compression: MRI show no acute compression fracture. Patient has Significant stenosis but surgery will not likely improve her clinical situation. f/u prn. will sign off please call if new symptoms arise. Status: Acute Coding Level of Care Code Acute Retail Service Technician for g Fwd Diagnoses Fracture, thoracic vertebra, compression S22.000A Lumbar compression fracture S32.000A
[2021-01-17 08:00] VITALS: BP 126/77; PULSE 87; RESP 16; TEMP 36.6; O2SAT 95
[2021-01-17] MEDS: heparin 5,000 unit/mL INJ 1 mL 5000 UNIT SUBCUT ×2 (08:12→20:20)
[2021-01-17 12:00] VITALS: BP 106/64; PULSE 91; RESP 16; TEMP 36.5; O2SAT 96
[2021-01-17 15:52] VITALS: BP 115/71; PULSE 83; RESP 16; TEMP 36.4; O2SAT 96
[2021-01-17 20:36] VITALS: BP 124/85; PULSE 74; RESP 18; TEMP 36.4; O2SAT 97
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
[2021-01-17] MEDS: doxycycline 100 MG in sodium chloride 0.9% (plus) 100 ML IV (21:55)
[2021-01-18] VITALS: BP 130/83; PULSE 69; RESP 12; TEMP 36.6; O2SAT 98
[2021-01-18 04:00] VITALS: BP 153/86; PULSE 69; RESP 12; TEMP 36.7; O2SAT 96
[2021-01-18 05:17] LABS: Basophils % 0.4 %; Eosinophils # 0.1 10^3/uL (0.0-0.8); Eosinophils % 1.8 %; Hemoglobin 11.3 g/dL (11.5-15.3); Lymphocytes # 1.1 10^3/uL (0.8-4.8); Lymphocytes % 19.3 %; Mean Corpuscular HGB Conc 32.3 g/dL (30.0-36.0); Mean Corpuscular Hemoglobin 29.4 pg (28.0-34.0); Mean Corpuscular Volume 90.9 fl (81-99); Mean Platelet Volume 10.6 fL (7.4-10.4); Monocytes # 0.6 10^3/uL (0.2-0.9); Monocytes % 10.3 %; Neutrophils # 3.79 10^3/uL (1.8-7.7); Neutrophils % 67.5 %; Nucleated Red Blood Cells % 0 %; Platelet Count 145 10^3/cmm (130-400); Red Blood Count 3.85 10^6/uL (4.1-5.3); Red Cell Distribution Width 12.8 % (12.1-15.1); White Blood Count 5.6 10^3/uL (4.0-10.0)
[2021-01-18 05:40] LABS: Alanine Aminotransferase 15 U/L (0-33); Alkaline Phosphatase 30 IU/L (35-105); Aspartate Amino Transferase 16 U/L (0-32); Blood Urea Nitrogen 28 mg/dL (8-23); Calcium 8.2 mg/dL (8.5-10.5); Carbon Dioxide 27 mmol/L (22-29); Chloride 105 mmol/L (98-107); Globulin 1.6 g/dL (1.3-4.6); Glucose 79 mg/dL (65-115); Osmolality Calculated 288 mOsm/kg (285-295); Sodium 137 mmol/L (136-145); Total Bilirubin 0.4 mg/dL (0.15-1.2); Total Protein 4.6 g/dL (6.6-8.7)
[2021-01-18 07:46] VITALS: BP 122/72; PULSE 72; RESP 16; TEMP 36.7; O2SAT 95
[2021-01-18] MEDS: heparin 5,000 unit/mL INJ 1 mL 5000 UNIT SUBCUT ×2 (10:09→21:18)
[2021-01-18] MEDS: doxycycline 100 MG in sodium chloride 0.9% (plus) 100 ML IV ×2 (10:09→21:14)
[2021-01-18 11:45] VITALS: BP 128/73; PULSE 72; RESP 16; TEMP 36.7; O2SAT 97
--- NOTE | 2021-01-18 13:50 | PC.SOCIAL ---
IM follow up reviewed and copy provided. NO questions voiced.
[2021-01-18] MEDS: cefTRIAXone 1,000 MG in sodium chloride 0.9% (plus) 50 ML 100 MG IV (15:32)
[2021-01-18 15:59] VITALS: BP 125/74; PULSE 70; RESP 16; TEMP 36.4; O2SAT 94
[2021-01-18 20:00] VITALS: BP 134/74; PULSE 77; RESP 18; TEMP 36.8; O2SAT 96
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
[2021-01-19] VITALS (7 sets, daily range): BP systolic 103–159; BP diastolic 63–85; PULSE 67–91; RESP 16–18; TEMP 36.4–36.7; O2SAT 93–97
[2021-01-19 05:39] LABS: Basophils % 0.7 %; Eosinophils # 0.1 10^3/uL (0.0-0.8); Eosinophils % 2.2 %; Hematocrit 35.6 % (37.0-47.0); Hemoglobin 11.4 g/dL (11.5-15.3); Lymphocytes # 0.8 10^3/uL (0.8-4.8); Lymphocytes % 17.5 %; Mean Corpuscular Hemoglobin 29.3 pg (28.0-34.0); Mean Corpuscular Volume 91.5 fl (81-99); Mean Platelet Volume 11.3 fL (7.4-10.4); Monocytes # 0.6 10^3/uL (0.2-0.9); Monocytes % 12.6 %; Neutrophils # 2.98 10^3/uL (1.8-7.7); Neutrophils % 66.1 %; Nucleated Red Blood Cells % 0 %; Platelet Count 144 10^3/cmm (130-400); Red Blood Count 3.89 10^6/uL (4.1-5.3); Red Cell Distribution Width 12.9 % (12.1-15.1); White Blood Count 4.5 10^3/uL (4.0-10.0)
[2021-01-19 05:56] LABS: Alanine Aminotransferase 16 U/L (0-33); Alkaline Phosphatase 30 IU/L (35-105); Anion Gap 8.8 (5-19); Aspartate Amino Transferase 14 U/L (0-32); Blood Urea Nitrogen 26 mg/dL (8-23); Carbon Dioxide 27 mmol/L (22-29); Chloride 108 mmol/L (98-107); Globulin 1.6 g/dL (1.3-4.6); Glucose 78 mg/dL (65-115); Osmolality Calculated 294 mOsm/kg (285-295); Potassium 3.8 mmol/L (3.5-5.1); Sodium 140 mmol/L (136-145); Total Bilirubin 0.4 mg/dL (0.15-1.2); Total Protein 4.6 g/dL (6.6-8.7)
[2021-01-19] MEDS: heparin 5,000 unit/mL INJ 1 mL 5000 UNIT SUBCUT ×2 (08:29→20:00)
--- NOTE | 2021-01-19 09:27 | PC.CHAP ---
Pastoral Care Encounter/Spiritual Assessment Type of Contact [] Declined mold capper visit [] Patient/Family/Request visit [] Outpatient visit [] Follow-up visit [] Physician referral [] Code/Alert [x] Routine visit [] Staff referral [] Actively dying [] Patient sleeping [] Family support [] [] Out of room [] Palliative care [] [] Receiving care in room [] Pre-surgical visit [] Trauma [] Long length of stay [] ICU visit [] Other: Relational/Emotional Strength [] Patient feels connected with others/family/visitors/staff [] Distress [] Loneliness/isolation [] Abandonment Spirituality of Patient [x] Person of Vane [] Attends Christian of their Vane [x] Believes in Prayer [] Reads Bible or Scientologist materials [] There are Spiritual issues to be addressed General House Worker Interventions [x] Prayer [] Active listening [] Non-anxious presence [] Spiritual/emotional support [] Crisis/trauma care [] Spiritual counseling [] Bereavement support [] Provided bereavement packet [] Provided Bible/devotional materials [] Provided toy/stuffed animal, coloring book to patient or family member [] Provided Communion [] Anointing/Harper [] Salvation [x] Completed spiritual assessment [] Other: Impact on Illness or Injury [] Angry [] Fearful [] Anxious [] Often cries [] Exhaustion [] Unable to work [] Unable to attend yazdanism [] Unable to walk/stand [] Unable to read [] Unable to drive [] Unable to eat/drink [] Unable to sleep [] Unable to be with family [] Patient intubated [] Other: Summary Time spent with patient 10 min
[2021-01-19] MEDS: doxycycline 100 MG in sodium chloride 0.9% (plus) 100 ML IV (11:55)
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
--- NOTE | 2021-01-19 14:51 | PC.NUTR ---
Nutrition note: RD recommended vanilla Ensure once daily at previous assessment 01/16, as pt stated did not want multiple times per day. However, noted MD order for Ensure with all meals on following day. Have clarified MD order with dietary staff.
[2021-01-19] MEDS: cefTRIAXone 1,000 MG in sodium chloride 0.9% (plus) 50 ML 100 MG IV (16:12)
[2021-01-19] MEDS: doxycycline 100 mg Tablet PO (16:13)
[2021-01-19] MEDS: famotidine 20 mg Tablet PO (16:14)
[2021-01-20] VITALS (8 sets, daily range): BP systolic 123–159; BP diastolic 69–77; PULSE 64–88; RESP 14–18; TEMP 36.3–36.9; O2SAT 93–97
[2021-01-20 06:21] LABS: Basophils # 0.1 10^3/uL (0.0-0.1); Basophils % 0.8 %; Eosinophils # 0.1 10^3/uL (0.0-0.8); Eosinophils % 2.2 %; Hematocrit 36.6 % (37.0-47.0); Hemoglobin 11.7 g/dL (11.5-15.3); Lymphocytes % 16.7 %; Mean Corpuscular Hemoglobin 29.8 pg (28.0-34.0); Mean Corpuscular Volume 93.4 fl (81-99); Mean Platelet Volume 11.4 fL (7.4-10.4); Monocytes # 0.7 10^3/uL (0.2-0.9); Neutrophils # 4.02 10^3/uL (1.8-7.7); Neutrophils % 67.1 %; Nucleated Red Blood Cells % 0 %; Platelet Count 170 10^3/cmm (130-400); Red Blood Count 3.92 10^6/uL (4.1-5.3); Red Cell Distribution Width 13.1 % (12.1-15.1)
[2021-01-20 06:29] LABS: Estmated Average Glucose 94; Hemoglobin A1C 4.9 % (4.0-6.0)
[2021-01-20 06:50] LABS: Alanine Aminotransferase 21 U/L (0-33); Albumin Level 3.2 g/dL (3.5-5.2); Alkaline Phosphatase 33 IU/L (35-105); Anion Gap 9.7 (5-19); Aspartate Amino Transferase 16 U/L (0-32); Blood Urea Nitrogen 26 mg/dL (8-23); Calcium 8.4 mg/dL (8.5-10.5); Carbon Dioxide 27 mmol/L (22-29); Chloride 104 mmol/L (98-107); Globulin 1.6 g/dL (1.3-4.6); Glucose 78 mg/dL (65-115); Magnesium 1.9 mg/dL (1.7-2.3); Osmolality Calculated 288 mOsm/kg (285-295); Potassium 3.7 mmol/L (3.5-5.1); Sodium 137 mmol/L (136-145); Thyroid Stimulating Hormone 10.77 uIU/mL (0.27-4.20); Total Bilirubin 0.3 mg/dL (0.15-1.2); Total Protein 4.8 g/dL (6.6-8.7)
[2021-01-20 07:30] LABS: Chol HDL Ratio 2.63 mg/dL (0.0-4.40); Cholesterol 158 mg/dL (0-200); HDL Cholesterol 60 mg/dL (60-100); LDL Cholesterol Calculated 79 mg/dL (50-129); LDL HDL Ratio 1.32 RATIO (0.00-3.22); Triglycerides 94 mg/dL (0-150)
[2021-01-20] MEDS: doxycycline 100 mg Tablet PO ×2 (08:27→17:18)
[2021-01-20] MEDS: heparin 5,000 unit/mL INJ 1 mL 5000 UNIT SUBCUT ×2 (08:28→20:29)
[2021-01-20] MEDS: famotidine 20 mg Tablet PO ×2 (08:28→17:18)
[2021-01-20 11:15] LABS: Free T4 Free Thyroxine 1.03 ng/dL (0.82-1.77)
--- NOTE | 2021-01-20 12:55 | PC.SOCIAL ---
IMM Update: pg 2 of IMM updated and reviewed w/ patient. Copy provided.
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
[2021-01-20] MEDS: cefTRIAXone 1,000 MG in sodium chloride 0.9% (plus) 50 ML 100 MG IV (15:38)
[2021-01-21 03:55] VITALS: BP 161/79; PULSE 68; RESP 16; TEMP 36.6; O2SAT 94
[2021-01-21] MEDS: levothyroxine 25 mcg Tablet PO (05:13)
[2021-01-21] MEDS: acetaminophen 325 mg Tablet 650 MG PO (05:13)
[2021-01-21 08:00] VITALS: BP 107/56; PULSE 82; RESP 17; TEMP 36.8; O2SAT 96
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
[2021-01-21] MEDS: doxycycline 100 mg Tablet PO (09:24)
[2021-01-21] MEDS: heparin 5,000 unit/mL INJ 1 mL 5000 UNIT SUBCUT (09:24)
[2021-01-21] MEDS: famotidine 20 mg Tablet PO (09:24)
[2021-01-21 11:13] LABS: SARS Covid-2 Antigen Negative (Negative)
[2021-01-21 12:00] VITALS: BP 115/78; PULSE 74; RESP 17; TEMP 36.8; O2SAT 94
--- NOTE | 2021-01-21 13:52 | PC.NURSE ---
PT HAS DONE WELL WITH ME TODAY. NO COMPLAINTS OF PAIN. PT IS WORKING WITH PHYSICAL THERAPY AND IS DOING FAIR WITH THE WALKER. PTS IV HAS BEEN REMOVED. PT TOLERATED WELL. PT INFORMED OF PLANNED DISCHARGE TO [facility] IN [place]. PT IS EXCITED TO GET TO PENITENTIARY. REPORT CALLED TO FREDERICK ALANIZ AT [facility]. ALL QUESTIONS ANSWERED. PT IS READY TO BE PICKED UP. SOMEONE FROM [facility] SHOULD BE COMING TO GET HER. WILL CONTINUE TO MONITOR PT UNTIL SHE LEAVES.
--- NOTE | 2021-01-21 15:39 | PC.NURSE ---
[facility]
== END 2021-01-21 15:40 | disposition skilled nursing facility (03) | DRG 690 ==
LOC: ER 17:23 → MEDSURG 18:55
PROVIDERS: Student in an Organized Health Care Education/Training Program; Admitting Provider Internal Medicine; Emergency Provider Family Medicine; Visit Provider Hospitalist
DX: N39.0 Urinary tract infection, site not specified (principal); L03.115 Cellulitis of right lower limb; M62.82 Rhabdomyolysis; G91.1 Obstructive hydrocephalus; R26.2 Difficulty in walking, not elsewhere classified; E86.0 Dehydration; M48.07 Spinal stenosis, lumbosacral region; R15.9 Full incontinence of feces; W19.XXXA Unspecified fall, initial encounter; F03.90 Unspecified dementia, unspecified severity, without behavioral disturbance, psychotic disturbance, mood disturbance, and anxiety; L53.9 Erythematous condition, unspecified; M79.89 Other specified soft tissue disorders; M41.9 Scoliosis, unspecified; M19.90 Unspecified osteoarthritis, unspecified site; B96.20 Unspecified Escherichia coli [E. coli] as the cause of diseases classified elsewhere; R32 Unspecified urinary incontinence; R29.810 Facial weakness; H53.2 Diplopia; I10 Essential (primary) hypertension; D72.829 Elevated white blood cell count, unspecified; Z87.828 Personal history of other (healed) physical injury and trauma; Z87.81 Personal history of (healed) traumatic fracture; Z60.2 Problems related to living alone
CPT/HCPCS: 36415; 36600; 51702; 70450; 71045; 71260; 72148; 74177; 80051; 80053; 80061; 81001; 82009; 82330; 82550; 82805; 83036; 83605; 83690; 83735; 84100; 84439; 84443; 84481; 84484; 85025; 87077; 87086; 87186; 87426; 93005; 93970; 94664; 96365; 96372; 97110; 97116; 97161; 97165; 97530; 97535; 99285; J0696; J1644; J3490; J7040; Q9967

== ENCOUNTER 2021-12-05 11:09 | Inpatient (IN) | payer MEDICARE, SELFPAY ==
[2021-12-05] VITALS (25 sets, daily range): BP systolic 119–155; BP diastolic 59–83; PULSE 86–107; RESP 16–25; TEMP 36.4–37; O2SAT 91–100; BMI 32.9
--- NOTE | 2021-12-05 11:17 | CTR_ITS ---
PROCEDURE INFORMATION: Exam: CT Head Without Contrast Exam date and time: 12/05/2021 11:48 AM Age: 81 years old Clinical indication: Altered mental status/memory loss; Age related cognitive decline; Additional info: AMS TECHNIQUE: Imaging protocol: Computed tomography of the head without contrast. Radiation optimization: All CT scans at this facility use at least one of these dose optimization techniques: automated exposure control; mA and/or kV adjustment per patient size (includes targeted exams where dose is matched to clinical indication); or iterative reconstruction. COMPARISON: CT head wo con* [id number] 01/15/2021 1:39 PM RADIATION DOSE METRICS: Total DLP (mGy-cm): 926.88 FINDINGS: Brain: No intracranial hemorrhage, edema or other acute abnormalities are seen in the brain. There is generalized chronic atrophy with prominence of the ventricles and sulci. The ventricular size has not seen the change since previous study. There is decreased white matter density which is consistent with chronic small vessel white matter ischemia. There is no mass effect or midline shift. Cerebral ventricles: The ventricles are enlarged which is probably due to chronic atrophy. No change. Paranasal sinuses: Mild scattered mucosal thickening in the paranasal sinuses. Mastoid air cells: Visualized mastoid air cells are well aerated. Bones/joints: Unremarkable. No acute fracture. Soft tissues: Unremarkable. CT/CT head wo con* [id number] IMPRESSION: 1. No acute abnormality. 2. Generalized chronic atrophy with chronic white matter ischemic changes.
--- NOTE | 2021-12-05 11:17 | XRR_ITS ---
PROCEDURE INFORMATION: Exam: XR Chest Exam date and time: 12/05/2021 11:39 AM Age: 81 years old Clinical indication: Shortness of breath and other: AMS TECHNIQUE: Imaging protocol: Radiologic exam of the chest. Views: 1 view. COMPARISON: CT chest abd pel w con* 01/15/2021 1:43 PM FINDINGS: Lungs: There is left basilar opacity consistent with lower lobe consolidation or atelectasis. There is a poor inspiration with elevation of the diaphragm. Right lung is otherwise clear. Pleural spaces: Unremarkable. No pleural effusion. No pneumothorax. Heart/Mediastinum: Unremarkable. No cardiomegaly. Bones/joints: Unremarkable. XR/XR chest 1V portable [id number] IMPRESSION: Poor inspiration with left lower lobe atelectasis/consolidation.
--- NOTE | 2021-12-05 11:18 | ECG_ITS ---
[facility] Test Date: 2021-12-05 Pat Name: Rosalba Thompson Department: Room: Gender: Female [employer] Operator: : 1940 Requested By: Tari Cantu Order Number: [id number] Linda MD: Evan Avitia M.D. Measurements Intervals [place] Rate: 91 P: 62 OR: 141 QRS: 7 QRSD: 78 T: -19 QT: 360 QTc: 444 Interpretive Statements SINUS RHYTHM with baseline artifact Poor R wave progression MODERATE ST DEPRESSION [0.05+ mV ST DEPRESSION] Compared to ECG 01/15/2021 16:52:15 ST (T wave) deviation now present The change in R wave progression is new. Electronically Signed On 12-06-2021 8:31:41 CDT by Evan Avitia M.D. [id number]
--- NOTE | 2021-12-05 11:29 | W.ED.AMS ---
HPI - Altered Mental Status General: Chief Complaint: Altered Mental Status Stated Complaint: DEMENTIA/ AMS Time Seen by Provider: 12/05/21 11:12 Source: patient and EMS Mode of arrival: EMS Limitations: altered mental status History of Present Illness: 81-year-old female who is here from longterm she has a long history of dementia longterm was concerned she is been little more confused from her baseline per them over the last 2 days here she is able answer my questions she is able to tell me her name she is disoriented to date and where she is which is her baseline. She said no fever she has chronic swelling to her extremities patient has no pain at all. Review of Systems General: Reports: ROS unobtainable due to mental status PFSH ED PFSH: Medical History Fracture, thoracic vertebra, compression HTN (hypertension) Kyphoscoliosis Osteoarthritis Urinary incontinence Surgical History History of hip surgery Tells me she broke her hip does not remember when Hx of hernia repair Tells me about middle abdominal hernia repair, does not remember when Family History Other Cancer Social History Smoking and tobacco status: never smoked Alcohol intake: never Caregiver/support person: No (Gets help from friend as per HPI) Lives independently: Yes Physical Exam Const: EXAM LIMITATIONS: altered mental status GENERAL APPEARANCE: cooperative HENMT: COMMON NORMALS: normocephalic, atraumatic and Normal external nose present HEAD & SCALP: normocephalic and atraumatic NOSE: Normal external nose present THROAT: posterior oropharynx normal Eye: COMMON NORMALS: Equal, round and reactive pupils present and conjunctivae normal CONJUNCTIVA: Yes conjunctivae normal PUPIL: Yes Equal, round and reactive pupils present Neck/C-Spine: COMMON NORMALS: full ROM Chest: COMMONS NORMALS: normal inspection of the chest and normal palpation of entire chest wall Resp: COMMON NORMALS: normal respiratory effort and No retractions EFFORT & INSPECTION: Yes able to speak in complete sentences Cardio: COMMON NORMALS: regular rate and regular rhythm RATE: regular rate RHYTHM: regular rhythm GI: COMMON NORMALS: Normal to inspection, nondistended, normoactive bowel sounds present, Soft to palpation and non-tender PALPATION: Yes Soft to palpation Extremity: NARRATIVE EXTREMITY EXAM: 2+ edema le Course Vital Signs: Vital signs: Vital Signs Temperature 97.9 F 12/05/21 11:10 Pulse Rate 89 12/05/21 13:00 Respiratory Rate 23 H 12/05/21 12:00 Blood Pressure 119/62 12/05/21 12:00 Pulse Oximetry 96 12/05/21 13:00 MDM - Altered Mental Status Medical Decision Making Patient presents here with some altered mental status from longterm she is well-appearing here is able answer most my questions appropriately seems to be at her baseline her blood work did show her to be quite anemic did recheck it on a separate blood draw has her blood pressures been normal and it is correct she has had no bleeding her rectal exam here shows no blood in her stool will admit and transfuse at this time. Lab Data : 12/05/21 14:00 12/05/21 12:20 Radiology Impressions Chest X-Ray 12/05/21 11:17 IMPRESSION: Poor inspiration with left lower lobe atelectasis/consolidation. Head CT 12/05/21 11:17 IMPRESSION: 1. No acute abnormality. 2. Generalized chronic atrophy with chronic white matter ischemic changes. Laboratory Results WBC 6.5 10^3/uL (4.0-10.0) 12/05/21 13:05 Corrected WBC Cancelled 12/05/21 12:20 RBC 2.65 10^6/uL (4.1-5.3) L 12/05/21 13:05 Hgb 3.5 g/dL (11.5-15.3) L* 12/05/21 14:00 Hct 15.7 % (37.0-47.0) L* 12/05/21 14:00 MCV 56.6 fl (81-99) L 12/05/21 13:05 MCH 13.6 pg (28.0-34.0) L 12/05/21 13:05 MCHC 24.0 g/dL (30.0-36.0) L 12/05/21 13:05 RDW 20.2 % (12.1-15.1) H 12/05/21 13:05 Plt Count 272 10^3/cmm (130-400) 12/05/21 13:05 MPV 8.8 fL (7.4-10.4) 12/05/21 13:05 Gran % Cancelled 12/05/21 12:20 Neut % (Auto) 69.9 % 12/05/21 13:05 Lymph % (Auto) 12.0 % 12/05/21 13:05 [place] % (Auto) 15.4 % 12/05/21 13:05 Eos % (Auto) 2.0 % 12/05/21 13:05 Baso % (Auto) 0.2 % 12/05/21 13:05 Neut # (Auto) 4.53 10^3/uL (1.8-7.7) 12/05/21 13:05 Lymph # (Auto) 0.8 10^3/uL (0.8-4.8) 12/05/21 13:05 [place] # (Auto) 1.0 10^3/uL (0.2-0.9) H 12/05/21 13:05 Eos # (Auto) 0.1 10^3/uL (0.0-0.8) 12/05/21 13:05 Baso # (Auto) 0.0 10^3/uL (0.0-0.1) 12/05/21 13:05 Absolute Gran (auto) Cancelled 12/05/21 12:20 Nucleated RBC % (auto) 0.3 % 12/05/21 13:05 Nucleated RBCs # 0.0 /100WBC 12/05/21 13:05 Sodium 140 mmol/L (136-145) 12/05/21 12:20 Potassium 4.0 mmol/L (3.5-5.1) 12/05/21 12:20 Chloride 106 mmol/L (98-107) 12/05/21 12:20 Carbon Dioxide 25 mmol/L (22-29) 12/05/21 12:20 Anion Gap 13.0 (5-19) 12/05/21 12:20 BUN 16 mg/dL (8-23) 12/05/21 12:20 Creatinine 0.5 mg/dL (0.5-0.9) 12/05/21 12:20 GFR Calculation Not Reportable 12/05/21 12:20 Glucose 98 mg/dL (65-115) 12/05/21 12:20 Calculated Osmolality 291 mOsm/kg (285-295) 12/05/21 12:20 Calcium 8.5 mg/dL (8.5-10.5) 12/05/21 12:20 Total Bilirubin 0.3 mg/dL (0.15-1.2) 12/05/21 12:20 AST 12 U/L (0-32) 12/05/21 12:20 ALT 9 U/L (0-33) 12/05/21 12:20 Alkaline Phosphatase 39 U/L (35-105) 12/05/21 12:20 NT-Pro-B Natriuret Pep 1594 pg/mL (0-450) H 12/05/21 12:20 Total Protein 5.6 g/dL (6.6-8.7) L 12/05/21 12:20 Albumin 3.8 g/dL (3.5-5.2) 12/05/21 12:20 Globulin 1.8 g/dL (1.3-4.6) 12/05/21 12:20 Urine Color Yellow (Yellow) 12/05/21 12:20 Urine Appearance Clear (CLEAR) 12/05/21 12:20 Urine pH 6.5 (5-7) 12/05/21 12:20 Ur Specific [place] 1.015 (1.005-1.030) 12/05/21 12:20 Urine Protein Neg (Negative) 12/05/21 12:20 Urine Glucose (UA) Norm (Normal) 12/05/21 12:20 Urine Ketones Negative (Negative) 12/05/21 12:20 Urine Blood Neg (Negative) 12/05/21 12:20 Urine Nitrate Negative (Negative) 12/05/21 12:20 Urine Bilirubin Neg (Negative) 12/05/21 12:20 Urine Urobilinogen Norm mg/dL (Negative) 12/05/21 12:20 Ur Leukocyte Esterase Negative (Negative) 12/05/21 12:20 EKG Data EKG 1: I personally reviewed and interpreted this EKG as follows: EKG interpretation date: 12/05/21 EKG interpretation time: 11:37 Interpretation: nsr hr [address] elevation qrs 78 qtc 409 Discharge Plan Discharge Patient Disposition: Admitted As Inpatient Clinical Impression: Anemia Condition: Stable Coding Level of Care Code ED Warehouse Shipper for Chg Fwd Exam Comprehensive
[2021-12-05 12:46] LABS: Add Urine Microscopic? NO; Charge for UA Resulting for Rev
[2021-12-05 13:14] LABS: Bilirubin Urine Neg (Negative); Blood Urine Neg (Negative); Glucose Urine UA Norm (Normal); Ketones Urine Negative (Negative); Nitrate Urine Negative (Negative); Protein Urine Neg (Negative); Specific Gravity, Urine 1.015 (1.005-1.030); Urine Appearance Clear (CLEAR); Urine Color Yellow (Yellow); pH Urine 6.5 (5-7)
[2021-12-05 13:15] LABS: Leukocyte Esterase Urine Negative (Negative); Urobilinogen Urine Norm (Negative)
[2021-12-05 13:18] LABS: Basophils % 0.2 %; Eosinophils # 0.1 10^3/uL (0.0-0.8); Lymphocytes # 0.8 10^3/uL (0.8-4.8); Mean Corpuscular Hemoglobin 13.6 pg (28.0-34.0); Mean Corpuscular Volume 56.6 fl (81-99); Mean Platelet Volume 8.8 fL (7.4-10.4); Monocytes % 15.4 %; Neutrophils # 4.53 10^3/uL (1.8-7.7); Neutrophils % 69.9 %; Nucleated Red Blood Cells % 0.3 %; Platelet Count 272 10^3/cmm (130-400); Red Blood Count 2.65 10^6/uL (4.1-5.3); Red Cell Distribution Width 20.2 % (12.1-15.1); White Blood Count 6.5 10^3/uL (4.0-10.0)
[2021-12-05 13:29] LABS: Alanine Aminotransferase 9 U/L (0-33); Albumin Level 3.8 g/dL (3.5-5.2); Alkaline Phosphatase 39 U/L (35-105); Aspartate Amino Transferase 12 U/L (0-32); Blood Urea Nitrogen 16 mg/dL (8-23); Calcium 8.5 mg/dL (8.5-10.5); Carbon Dioxide 25 mmol/L (22-29); Chloride 106 mmol/L (98-107); Globulin 1.8 g/dL (1.3-4.6); Glucose 98 mg/dL (65-115); NT Pro B Type Natriuretic Pept 1594 pg/mL (0-450); Osmolality Calculated 291 mOsm/kg (285-295); Sodium 140 mmol/L (136-145); Total Bilirubin 0.3 mg/dL (0.15-1.2); Total Protein 5.6 g/dL (6.6-8.7)
[2021-12-05 13:33] LABS: Hemoglobin 3.6 g/dL (11.5-15.3)
[2021-12-05 14:15] LABS: Hematocrit 15.7 % (37.0-47.0); Hemoglobin 3.5 g/dL (11.5-15.3)
[2021-12-05 14:51] LABS: Iron 8 ug/dL (37-145); Percent Saturation 1.9 % (20-50); Total Iron Binding Capacity 406 mcg/dl; Unsaturated Iron Binding 398 ug/dL (112-347)
--- NOTE | 2021-12-05 16:05 | P.HP_ITS ---
Providers/Chief Complaint Admitting Physician: Pedro Luis Healy MD Primary Care Provider: Terrance Bella MD Chief Complaint: DEMENTIA/ AMS History of Present Illness Rosalba Thompson is a 81 year old female with past medical history of hypothyroidism dementia, senior living resident, was sent from the senior living because she was having some confusion, more than her baseline, When I was talking to the patient, she had good mentation, she answered all the questions appropriately, she is aware of name, but is disoriented to place and date. Blood work done in the ER: Showed severe severe anemia. Pertinent imaging studies: CT head without contrast: No acute intracranial pathology X-ray chest: left lower lobe atelectasis/consolidation. Pertinent labs: And vitals have been reviewed. Review of Systems General: Reports: 10 or more systems reviewed and unremarkable except in HPI and below Const: Denies: fever(s), chills, body aches, change in appetite or diaphoresis Card: Denies: palpitations, edema, swelling of feet/ankles, dyspnea on exertion, orthopnea or leg pain with exertion Resp: Denies: dyspnea, productive cough, wheezing or pain on inspiration GI: Denies: abdominal pain, nausea, vomiting, diarrhea or constipation : Denies: flank pain Musc: Reports: extremity pain; Denies: back pain or extremity swelling Neuro: Denies: headache(s), difficulty walking or confusion Medications/Allergies Home Medications Medication Instructions Recorded Confirmed Last Taken Type levothyroxine 25 mcg tablet 25 mcg PO QAM #30 tabs 01/21/21 12/05/21 12/04/21 Rx famotidine 40 mg tablet (Pepcid) 40 mg PO BID 12/05/21 12/05/21 12/04/21 History Allergies Allergy/AdvReac Type Severity Reaction Status Date / Time No Known Allergies Allergy Verified 11/20/21 09:11 PFSH Acute PFSH: Medical History Fracture, thoracic vertebra, compression HTN (hypertension) Kyphoscoliosis Osteoarthritis Urinary incontinence Surgical History History of hip surgery Tells me she broke her hip does not remember when Hx of hernia repair Tells me about middle abdominal hernia repair, does not remember when Family History Other Cancer Social History Smoking and tobacco status: never smoked Alcohol intake: never Caregiver/support person: No (Gets help from friend as per HPI) Lives independently: Yes Vitals/I&O/Wt Last Vital Signs Temp 97.6 F 12/05/21 15:51 Pulse 93 12/05/21 15:51 Resp 18 12/05/21 15:51 BP 130/75 12/05/21 15:51 Pulse Ox 100 12/05/21 15:51 12/05/21 12/05/21 12/05/21 06:59 14:59 22:59 Intake Total 0 / 0 Balance 0 / 0 Weight last 48 hrs Weight 81.647 kg Physical Exam Resp: COMMON NORMALS: clear to auscultation bilaterally AUSCULTATION: clear to auscultation bilaterally Cardio: COMMON NORMALS: regular rate, regular rhythm, S1 normal heart sound present, S2 normal heart sound present, No gallops present (Cardio), No murmurs present (Cardio), No rub (Cardio) and Peripheral pulses 2+ throughout RATE: regular rate RHYTHM: regular rhythm HEART SOUNDS: S1 normal heart sound present and S2 normal heart sound present PERIPHERAL PULSES: Peripheral pulses 2+ throughout GI: COMMON NORMALS: Normal to inspection, nondistended, normoactive bowel sounds present, Soft to palpation, non-tender, No hepatosplenomegaly present and no masses AUSCULTATION: Yes normoactive bowel sounds PALPATION: Yes Soft to palpation and Yes No hepatosplenomegaly present RECTAL EXAM: deferred Extremity: NARRATIVE EXTREMITY EXAM: lt lower extremity redness and swelling present Data : 12/05/21 14:00 12/05/21 12:20 A&P Assessment and plan (1) Anemia: Status: Acute (2) Dementia: Status: Acute (3) Hypothyroidism: Status: Acute Plan 81 year old female with past medical history of hypothyroidism dementia, senior living resident, was sent from the senior living because she was having some confusion, more than her baseline. Assessment: Severe symptomatic iron deficiency anemia Left lower extremity cellulitis Hypothyroidism Dementia Plan: Anemia panel: Serum iron: 8 , TIBC: 406 , percent saturation: 1.9 , ferritin: TSH B12 Folic acid PT/INR APTT FOBT Monitor H&H Current plan is to transfuse 2 units PRBC Protonix IV 40 daily Continue levothyroxine Continue ceftriaxone CODE STATUS: Full code DVT prophylaxis: On antiembolic's Attestations Medical Necessity Statement*: Patient needs to be in hospital for management of severe symptomatic anemia.Anticipated length of stay greater than 2 midnights. Time Spent in Patient Care: Greater than 35 minutes (>than 50% of time spent in counselling and/or direct pt care on unit) . Coding Level of Care Code Acute Breast Buffer for g Fwd Diagnoses Anemia D64.9 Dementia F03.90 Hypothyroidism E03.9
--- NOTE | 2021-12-05 16:06 | USR_ITS ---
PROCEDURE INFORMATION: Exam: US Duplex Lower Extremity Veins, Bilateral Exam date and time: 12/05/2021 4:31 PM Age: 81 years old Clinical indication: Edema, localized; Lower extremity, bilateral; Additional info: Lt lower extremity swelling TECHNIQUE: Imaging protocol: Real-time Duplex ultrasound of the bilateral extremities with 2-D ramirez scale, color Doppler flow and spectral waveform analysis with image documentation. Complete exam focused on the bilateral lower extremity veins. COMPARISON: CT chest abd pel w con* 01/15/2021 1:43 PM FINDINGS: Right deep veins: Unremarkable. The common femoral, femoral, proximal profunda femoral and popliteal veins are patent without thrombus. Normal Doppler waveforms. Normal compressibility and/or augmentation response. Right superficial veins: Saphenofemoral junction is patent without thrombus. Left deep veins: Unremarkable. The common femoral, femoral, proximal profunda femoral and popliteal veins are patent without thrombus. Normal Doppler waveforms. Normal compressibility and/or augmentation response. Left superficial veins: Saphenofemoral junction is patent without thrombus. Soft tissues: Unremarkable. US/CV venous duplex [facility] [id number] IMPRESSION: No evidence of deep vein thrombosis.
[2021-12-05] MEDS: sodium chloride 0.9% (100 ml) 100 ML (17:37)
[2021-12-06] VITALS (14 sets, daily range): BP systolic 141–177; BP diastolic 72–84; PULSE 81–99; RESP 17–24; TEMP 36.6–37.4; O2SAT 91–98
[2021-12-06 00:02] LABS: Hemoglobin 4.6 g/dL (11.5-15.3)
[2021-12-06 00:03] LABS: Hematocrit 17.2 % (37.0-47.0)
[2021-12-06] MEDS: pantoprazole 40 mg SDV IVP (00:03)
[2021-12-06] MEDS: sodium chloride 0.9% 100 mL Bag 50 ML IV (02:06)
[2021-12-06] MEDS: cefTRIAXone 1,000 MG in sodium chloride 0.9% (plus) 50 ML 100 MG IV (02:45)
[2021-12-06] MEDS: levothyroxine 25 mcg Tablet PO (04:41)
[2021-12-06] MEDS: FUROsemide 10 mg/mL SDV 2mL 20 MG IVP (07:46)
[2021-12-06 09:08] LABS: Basophils # 0.1 10^3/uL (0.0-0.1); Basophils % 0.6 %; Eosinophils # 0.1 10^3/uL (0.0-0.8); Eosinophils % 0.8 %; Hematocrit 28.4 % (37.0-47.0); Lymphocytes # 0.7 10^3/uL (0.8-4.8); Lymphocytes % 7.6 %; Mean Corpuscular HGB Conc 29.2 g/dL (30.0-36.0); Mean Corpuscular Hemoglobin 19.8 pg (28.0-34.0); Mean Corpuscular Volume 67.6 fl (81-99); Mean Platelet Volume 9.3 fL (7.4-10.4); Monocytes # 0.9 10^3/uL (0.2-0.9); Monocytes % 9.9 %; Neutrophils # 7.46 10^3/uL (1.8-7.7); Neutrophils % 78.7 %; Nucleated Red Blood Cells # 0.1 /100WBC; Nucleated Red Blood Cells % 0.9 %; Platelet Count 204 10^3/cmm (130-400); White Blood Count 9.5 10^3/uL (4.0-10.0)
[2021-12-06 09:12] LABS: Hemoglobin 8.3 g/dL (11.5-15.3)
[2021-12-06 09:21] LABS: INR 1.02 (0.8-1.2)
[2021-12-06 09:22] LABS: Partial Thromboplastin Time 29.2 SECONDS (23.9-36.7)
[2021-12-06 09:41] LABS: Alanine Aminotransferase 12 U/L (0-33); Albumin Level 3.9 g/dL (3.5-5.2); Alkaline Phosphatase 49 U/L (35-105); Anion Gap 10.8 (5-19); Aspartate Amino Transferase 16 U/L (0-32); Blood Urea Nitrogen 13 mg/dL (8-23); Calcium 8.4 mg/dL (8.5-10.5); Carbon Dioxide 26 mmol/L (22-29); Chloride 104 mmol/L (98-107); Ferritin 51 ng/mL (15-150); Globulin 2.1 g/dL (1.3-4.6); Glucose 90 mg/dL (65-115); Osmolality Calculated 284 mOsm/kg (285-295); Potassium 3.8 mmol/L (3.5-5.1); Sodium 137 mmol/L (136-145); Thyroid Stimulating Hormone 3.82 uIU/mL (0.27-4.20)
[2021-12-06 09:45] LABS: Folate Level 17.4 ng/mL (4.8-37.3)
[2021-12-06 10:05] LABS: Vitamin B12 246 pg/mL (232-1245)
--- NOTE | 2021-12-06 10:40 | PM.DCS ---
Discharge Providers Date of Admission: 12/05/21 14:22 Date of Discharge: December 06, 2021 Attending Provider at Admission: Pedro Luis Healy MD Attending Provider at Discharge: Pedro Luis Healy MD Primary Care Provider: Terrance Bella MD Diagnoses at Discharge Discharge Diagnosis (1) Anemia: Status: Acute (2) Dementia: Status: Acute (3) Hypothyroidism: Status: Acute Reason for Visit Reason for Visit: DEMENTIA/ AMS Hospital Course Hospital Course Rosalba Thompson is a 81 year old female with past medical history of hypothyroidism dementia, skilled nursing resident, was sent from the skilled nursing because she was having some confusion, more than her baseline, When I was talking to the patient, she had good mentation, she answered all the questions appropriately, she is aware of name, but is disoriented to place and date. Likely this is her baseline due to dementia. Blood work done in the ER: Showed severe severe anemia. Pertinent imaging studies: CT head without contrast: No acute intracranial pathology X-ray chest:?left lower lobe atelectasis/consolidation. Hospital course: Patient was admitted for the management of severe symptomatic iron deficiency anemia,Anemia panel: Serum iron: 8 , TIBC: 406 , percent saturation: 1.9 , ferritin:51 TSH:3.82 , B12: 246 , folic acid:17 She received 3 units PRBC during the hospital stay: No lobe and the time of discharge was 8.3, FOBT is pending, she has been discharged on oral iron supplement, she is also been discharged on oral B12, given the fact that the serum B12 is:246, repeat CBC can be done in a week. Patient may need EGD and colonoscopy as outpatient as well as possible malignancy work-up for cause of anemia as an outpatient. This can be pursued by the primary care physician. Patient was also managed for left lower extremity cellulitis she was on IV antibiotics in the hospital has been discharged on p.o. levofloxacin for additional 7 days. Overall patient responded well to above medical management . She was discharged safely to skilled nursing. Physical Exam Resp: COMMON NORMALS: clear to auscultation bilaterally AUSCULTATION: clear to auscultation bilaterally Cardio: COMMON NORMALS: regular rate, regular rhythm, S1 normal heart sound present, S2 normal heart sound present, No gallops present (Cardio), No murmurs present (Cardio), No rub (Cardio) and Peripheral pulses 2+ throughout RATE: regular rate RHYTHM: regular rhythm HEART SOUNDS: S1 normal heart sound present and S2 normal heart sound present PERIPHERAL PULSES: Peripheral pulses 2+ throughout GI: COMMON NORMALS: Normal to inspection, nondistended, normoactive bowel sounds present, Soft to palpation, non-tender, No hepatosplenomegaly present and no masses AUSCULTATION: Yes normoactive bowel sounds PALPATION: Yes Soft to palpation and Yes No hepatosplenomegaly present RECTAL EXAM: deferred Extremity: NARRATIVE EXTREMITY EXAM: lt lower extremity redness and swelling present Discharge Data Studies Completed and Pending Completed Studies During Hospitalization Category Date Time Status CT head wo con* [id number] Stat Cat Scan 12/05/21 11:17 Completed XR chest 1V portable [id number] Stat Exams 12/05/21 11:17 Completed US venous duplex lower extremity bilat [CV venous Ultrasound 12/05/21 16:06 [place] [id number]] Routine Pending at discharge Category Date Time Status ABO/Rh Type Stat Lab 12/05/21 14:00 Results Complete Blood Count w/Auto AM LABS Lab 12/07/21 04:00 Ordered Complete Blood Count w/Auto AM LABS Lab 12/08/21 04:00 Ordered Complete Crossmatch Stat Lab 12/05/21 14:00 Results Comprehensive Metabolic Panel AM LABS Lab 12/07/21 04:00 Ordered Comprehensive Metabolic Panel AM LABS Lab 12/08/21 04:00 Ordered Fecal Occult Blood [Immunochemical Fecal OCB] Routine Lab 12/05/21 16:21 Uncollected Frozen Plasma FZ <24 1st Cont Stat Lab 12/06/21 01:06 Results Leukocyte Reduced RBC Stat Lab 12/05/21 14:00 Results Type and Screen Stat Lab 12/05/21 14:00 Results Radiology Impressions Chest X-Ray 12/05/21 11:17 IMPRESSION: Poor inspiration with left lower lobe atelectasis/consolidation. Head CT 12/05/21 11:17 IMPRESSION: 1. No acute abnormality. 2. Generalized chronic atrophy with chronic white matter ischemic changes. Venous Duplex 12/05/21 16:06 IMPRESSION: No evidence of deep vein thrombosis. Laboratory Results WBC 9.5 10^3/uL (4.0-10.0) 12/06/21 08:45 Corrected WBC Cancelled 12/05/21 12:20 RBC 4.20 10^6/uL (4.1-5.3) 12/06/21 08:45 Hgb 8.3 g/dL (11.5-15.3) L D 12/06/21 08:45 Hct 28.4 % (37.0-47.0) L D 12/06/21 08:45 MCV 67.6 fl (81-99) L D 12/06/21 08:45 MCH 19.8 pg (28.0-34.0) L D 12/06/21 08:45 MCHC 29.2 g/dL (30.0-36.0) L D 12/06/21 08:45 RDW Not Reportable 12/06/21 08:45 Plt Count 204 10^3/cmm (130-400) 12/06/21 08:45 MPV 9.3 fL (7.4-10.4) 12/06/21 08:45 Gran % Cancelled 12/05/21 12:20 Neut % (Auto) 78.7 % 12/06/21 08:45 Lymph % (Auto) 7.6 % 12/06/21 08:45 [place] % (Auto) 9.9 % 12/06/21 08:45 Eos % (Auto) 0.8 % 12/06/21 08:45 Baso % (Auto) 0.6 % 12/06/21 08:45 Neut # (Auto) 7.46 10^3/uL (1.8-7.7) 12/06/21 08:45 Lymph # (Auto) 0.7 10^3/uL (0.8-4.8) L 12/06/21 08:45 [place] # (Auto) 0.9 10^3/uL (0.2-0.9) 12/06/21 08:45 Eos # (Auto) 0.1 10^3/uL (0.0-0.8) 12/06/21 08:45 Baso # (Auto) 0.1 10^3/uL (0.0-0.1) 12/06/21 08:45 Absolute Gran (auto) Cancelled 12/05/21 12:20 Nucleated RBC % (auto) 0.9 % 12/06/21 08:45 Nucleated RBCs # 0.1 /100WBC 12/06/21 08:45 PT 13.70 SECONDS (12.1-14.9) 12/06/21 08:45 INR 1.02 (0.8-1.2) 12/06/21 08:45 APTT 29.2 SECONDS (23.9-36.7) 12/06/21 08:45 Sodium 137 mmol/L (136-145) 12/06/21 08:45 Potassium 3.8 mmol/L (3.5-5.1) 12/06/21 08:45 Chloride 104 mmol/L (98-107) 12/06/21 08:45 Carbon Dioxide 26 mmol/L (22-29) 12/06/21 08:45 Anion Gap 10.8 (5-19) 12/06/21 08:45 BUN 13 mg/dL (8-23) 12/06/21 08:45 Creatinine 0.5 mg/dL (0.5-0.9) 12/06/21 08:45 GFR Calculation Not Reportable 12/06/21 08:45 Glucose 90 mg/dL (65-115) 12/06/21 08:45 Calculated Osmolality 284 mOsm/kg (285-295) L 12/06/21 08:45 Calcium 8.4 mg/dL (8.5-10.5) L 12/06/21 08:45 Iron 8 ug/dL (37-145) L 12/05/21 12:20 TIBC 406 mcg/dl 12/05/21 12:20 % Saturation 1.9 % (20-50) L 12/05/21 12:20 Unsat Iron Binding 398 ug/dL (112-347) H 12/05/21 12:20 Ferritin 51 ng/mL (15-150) 12/06/21 08:45 Total Bilirubin 2.0 mg/dL (0.15-1.2) H 12/06/21 08:45 AST 16 U/L (0-32) 12/06/21 08:45 ALT 12 U/L (0-33) 12/06/21 08:45 Alkaline Phosphatase 49 U/L (35-105) 12/06/21 08:45 NT-Pro-B Natriuret Pep 1594 pg/mL (0-450) H 12/05/21 12:20 Total Protein 6.0 g/dL (6.6-8.7) L 12/06/21 08:45 Albumin 3.9 g/dL (3.5-5.2) 12/06/21 08:45 Globulin 2.1 g/dL (1.3-4.6) 12/06/21 08:45 Vitamin B12 246 pg/mL (232-1245) 12/06/21 08:45 Folate 17.4 ng/mL (4.8-37.3) 12/06/21 08:45 TSH 3.82 uIU/mL (0.27-4.20) 12/06/21 08:45 Urine Color Yellow (Yellow) 12/05/21 12:20 Urine Appearance Clear (CLEAR) 12/05/21 12:20 Urine pH 6.5 (5-7) 12/05/21 12:20 Ur Specific [place] 1.015 (1.005-1.030) 12/05/21 12:20 Urine Protein Neg (Negative) 12/05/21 12:20 Urine Glucose (UA) Norm (Normal) 12/05/21 12:20 Urine Ketones Negative (Negative) 12/05/21 12:20 Urine Blood Neg (Negative) 12/05/21 12:20 Urine Nitrate Negative (Negative) 12/05/21 12:20 Urine Bilirubin Neg (Negative) 12/05/21 12:20 Urine Urobilinogen Norm mg/dL (Negative) 12/05/21 12:20 Ur Leukocyte Esterase Negative (Negative) 12/05/21 12:20 Blood Type A Positive 12/05/21 14:00 Rho(D) Type Positive 12/05/21 14:00 Antibody Screen Negative 12/05/21 14:00 Crossmatch See Detail 12/05/21 14:00 Vitals Last Vital Signs Temp 98.3 F 12/06/21 08:00 Pulse 86 12/06/21 08:02 Resp 18 12/06/21 08:00 BP 175/82 12/06/21 08:00 Pulse Ox 96 12/06/21 08:02 O2 Del Method 12/06/21 08:02 O2 Flow Rate 2 12/06/21 08:02 Discharge Plan Discharge Patient Disposition: Xfer SNF Condition: Stable Prescriptions: New Protonix 40 mg tablet,delayed release (DR/EC) 40 mg PO DAILY 30 Days Qty: 30 3RF FeroSul 325 mg (65 mg iron) tablet 325 mg PO BID Qty: 60 3RF ascorbic acid (vitamin C) 500 mg capsule, extended release 500 mg PO DAILY Qty: 30 3RF levofloxacin 500 mg tablet 500 mg PO DAILY 7 Days Qty: 7 0RF cyanocobalamin (vitamin B-12) 1,000 mcg capsule 1,000 mcg PO DAILY Qty: 30 3RF Continued levothyroxine 25 mcg Tablet 25 mcg PO QAM Qty: 30 0RF Discontinued famotidine [Pepcid] 40 mg Tablet 40 mg PO BID Discharge Orders: Discharge Order (Routine); Ordered 12/06/21 Ordered By: Pedro Luis Healy Other Ambulatory Orders: Complete Blood Count w/Auto (Routine) Timeframe: 1 Week Location: Determined by Patient Ordered By: Pedro Luis Healy Referrals: [facility] [Outside] Terrance Bella MD [Primary Care Provider] - 2 weeks Patient Instructions: Iron Supplements (By mouth), Pantoprazole (By mouth), Anemia (GEN), Opioid Safety Discharge Attestations Time Spent in Discharge Care*: less than 30 min Status at Discharge: Cognitive status at discharge: mildly impaired cognition, Behavioral status at discharge: cooperative, Quality Metrics Clinical Quality Measures [ No reported AMI, CVA or VTE this stay] Coding Level of Care Code Acute Chg FW DC note Exam Expanded Problem Focused Diagnoses Anemia D64.9 Dementia F03.90 Hypothyroidism E03.9
== END 2021-12-06 12:25 | disposition skilled nursing facility (03) | DRG 812 ==
LOC: ER 14:24 → MEDSURG 14:50
PROVIDERS: Family Medicine; Admitting Provider Internal Medicine; Emergency Provider Emergency Medicine; PCP Internal Medicine; Visit Provider Internal Medicine
DX: D50.9 Iron deficiency anemia, unspecified (principal); L03.116 Cellulitis of left lower limb; E03.9 Hypothyroidism, unspecified; F03.90 Unspecified dementia, unspecified severity, without behavioral disturbance, psychotic disturbance, mood disturbance, and anxiety; M41.9 Scoliosis, unspecified; M19.90 Unspecified osteoarthritis, unspecified site
CPT/HCPCS: 36415; 36430; 70450; 71045; 80053; 81003; 82607; 82728; 82746; 83540; 83550; 83880; 84443; 85014; 85018; 85025; 85610; 85730; 86850; 86900; 86920; 93005; 93970; 99285; C9113; J0696; J1940; P9016; P9040

== ENCOUNTER → 2021-12-22 09:21 | Day surgery (SDC) | payer MEDICARE, SELFPAY ==
[2021-12-22] MEDS: ferric carboxy (IVPB) 750 MG in sodium chloride 0.9% (100 ml) 100 ML 300 MG IV (10:10)
[2021-12-22 10:32] VITALS: BP 150/85; PULSE 75; RESP 18; TEMP 36.6; O2SAT 94
== END ==
PROVIDERS: PCP Internal Medicine; Visit Provider Internal Medicine
DX: E61.1 Iron deficiency (principal)
CPT/HCPCS: 96365; J1439

== ENCOUNTER → 2021-12-29 13:36 | Day surgery (SDC) | payer MEDICARE, SELFPAY ==
[2021-12-29] MEDS: ferric carboxy (IVPB) 750 MG in sodium chloride 0.9% (100 ml) 100 ML 345 MG IV (13:50)
[2021-12-29 13:57] VITALS: BP 151/96; PULSE 81; RESP 18; TEMP 36.3; O2SAT 92
== END ==
PROVIDERS: PCP Internal Medicine; Visit Provider Internal Medicine
DX: D50.9 Iron deficiency anemia, unspecified (principal)
CPT/HCPCS: 96365; J1439